=== PATIENT | male | born 1950 | race Caucasian/White ===

== ENCOUNTER 2022-08-20 14:24 | Emergency (ER) | payer MEDICARE, MEDICAID, SELFPAY ==
--- NOTE | 2022-08-20 14:41 | ED_ITS ---
HPI - General Adult General Chief complaint: Urogenital-Male Stated complaint: F/C CATH PULLED OUT PER EMS Time Seen by Provider: 08/20/22 14:25 Source: patient and EMS Mode of arrival: EMS Limitations: physical limitation (Dementia) History of Present Illness HPI narrative: 72-year-old male brought in by EMS after Ontiveros catheter was pulled out. Patient normally lives at the halfway with chronic indwelling Ontiveros catheter at least for the past month and a half for urinary tension the catheter was pulled out patient unable to give history patient is not able to urinate for the past 8 hours despite drinking p.o. fluids patient however do not have abdominal pain or discomfort or distension, bleeding from the penis. Patient is not on anticoagulation. In the ED bladder scan showed 550 mL urine. Related Data Previous Rx's Medication Instructions Recorded cefuroxime axetil 500 mg tablet 500 mg PO Q12H #20 tabs 08/20/22 Allergies Allergy/AdvReac Type Severity Reaction Status Date / Time cats Allergy Unknown Unknown Uncoded 08/20/22 16:10 Review of Systems Review of Systems: All other systems are reviewed and are negative Constitutional: Reports as per HPI and Reports no additional constitutional complaints Eyes: Reports as per HPI and Reports no additional eye complaints Reports system reviewed and no additional complaints, except as documented Cardiovascular: Reports as per HPI and Reports no additional cardiovascular complaints Respiratory: Reports as per HPI and Reports no additional respiratory complaints Gastrointestinal: Reports as per HPI and Reports no additional gastrointestinal complaints Genitourinary: Reports no additional female genitourinary complaints Musculoskeletal: Reports no additional musculoskeletal complaints Skin/Breast: Reports system reviewed and no additional complaints, except as docu Psychiatric: Reports no additional psychiatric complaints Endocrine: Reports no additional endocrine complaints Hematologic/Lymphatic: Reports no additional hematologic/lymphatic complaints Allergic/Immunologic: Reports no additional allergic/immunologic complaints Reports system reviewed and no additional complaints, except as documented and Reports Abnormal speech present [facility] Social History Social History Advance Directives: No Advance Directives Information Provided: Yes Physical Exam ED Vital Signs: Vital Signs - 24 hr 08/20/22 14:43 Pulse Rate 59 Respiratory Rate 16 Pulse Oximetry 97 Oxygen Delivery Method Room Air BMI result Body Mass Index 24.0 Vital signs have been reviewed as appeared to be correct. Blood pressure normal. Heart rate normal. Respiration rate normal. Temperature normal. Oxygen saturation normal. Appearance: Alert. Oriented X3. No acute distress. Head: Normal external exam. Normocephalic. Atraumatic. No Bueno signs noted. No raccoon eyes noted Eyes: PERRLA. EOMI. Conjunctiva and sclera normal. Eyelids normal. ENT: TM's Normal. Pharynx normal. Uvula midline. Moist mucous membranes. No trismus noted. No drooling noted. No muffled voice noted. Neck: Normal inspection. Neck supple. FROM. No adenopathy. Thyroid Normal. No meningeal signs. No neck mass noted. CVS: Normal heart rate and rhythm. Heart sound normal. No murmurs noted. Pulses normal throughout. Respiratory: No respiratory distress. Painless inspiration. Breath sounds normal. No wheezes/rales/rhonchi noted. Chest nontender. No accessory muscle usage noted or decreased air movement noted. Abdomen: Soft and nontender. Bowel sounds normal in all 4 quadrants. No distention noted. No organomegaly noted. No visible injury noted. : Blood on the external urethral meatus no active bleeding. Back: No CVA tenderness. Full range of motion noted. Skin: Skin warm and dry. Normal skin color. Normal skin turgor. No rashes/lesions/lacerations noted. Extremities: No lower extremity edema. Extremities exhibit normal range of motion. Extremities nontender. Neuro: Oriented X 3. Cranial nerve exam: II-XII are grossly intact No motor deficit. No sensory deficit. Reflexes normal. Course Course Course Narrative: Status post urinary retention patient had Ontiveros catheter placed in the emergency department will discharge home with Ontiveros and leg bag teaching, bloody urine but no active bleeding need no irrigation at this point, UA is showing UTI will start patient on cefuroxime. Medical Decision Making Differential Diagnosis Differential Diagnoses: The differential diagnosis associated with the presentation includes Urine retention, UTI, urethral bleeding. Lab Data MDM Lab Attestation statement: I reviewed the patient's lab results. Labs: Lab Results 08/20/22 Range/Units 15:21 Urine Color Dark Yellow Urine Appearance Turbid Urine pH 6.5 (5.0-9.0) Ur Specific [place] 1.015 (1.005-1.025) Urine Protein 300 (3+) H (Neg-Trace) mg/dL Urine Glucose (UA) Negative (Negative) mg/dL Urine Ketones Negative (Negative) mg/dL Urine Blood Large (3+) H (Negative) Urine Nitrite Negative (Negative) Ur Leukocyte Esterase Large (3+) H (Negative) Urine RBC >20 H (0-2) /HPF Urine WBC >50 H (0-5) /HPF Ur Squamous Epith Cells 0-2 (0-2) /HPF Urine Bacteria None Seen (None Seen) Hyaline Casts 0-2 (0-2) /LPF Discharge Plan Discharge Clinical Impression: Urinary tract infection, Dislodged Ontiveros catheter Patient Disposition: Xfer Other Transfer Details: [facility] Instructions: Urinary Tract Infection in Men (ED), Ontiveros Catheter Placement and Care (ED) Prescriptions: New cefuroxime axetil 500 mg tablet 500 mg PO Q12H Qty: 20 0RF Referrals: Gonzalo Ortiz MD [Physician] -
[2022-08-20 14:43] VITALS: BP 140/70; PULSE 59; PULSE 72; RESP 16; O2SAT 97; BMI 24.0
--- NOTE | 2022-08-20 14:47 | PC.NURSE ---
pt alert disoriented at baseline. per EMS he pulled his villa out this am. will put in a replacement
--- NOTE | 2022-08-20 15:15 | PC.NURSE ---
put a new villa in. pt tolerated it the procedure well. tech will collect urine sample
[2022-08-20 15:31] LABS: Appearance Urine Turbid; Color Urine Dark Yellow; Glucose Urine UA Negative (Negative); Leukocyte Esterase Urine Large (3+) (Negative); Nitrite Urine Negative (Negative); PH 6.5 (5.0-9.0); Specific Gravity - Urine 1.015 (1.005-1.025); UMIC TRIGGER UACC YES; Urine Blood Large (3+) (Negative); Urine Ketones Negative (Negative); Urine Protein 300 (3+) mg/dL (Neg-Trace)
[2022-08-20 15:39] LABS: Bacteria Urine None Seen (None Seen); Hyaline Casts Urine 0-2 /LPF (0-2); RBC Urine >20 /HPF (0-2); Squamous Epithelial Cell Urine 0-2 /HPF (0-2); UACC Culture Trigger YES; WBC Urine >50 /HPF (0-5)
[2022-08-20 16:00] VITALS: BP 125/62; PULSE 54; RESP 13; TEMP 36.9; O2SAT 99
[2022-08-20 16:33] VITALS: BP 119/67; PULSE 52; RESP 16; O2SAT 100
--- NOTE | 2022-08-20 16:34 | PC.NURSE ---
pt. alert. disoriented. waiting on ambulance to be transported to [facility].
== END 2022-08-20 18:15 | disposition other institution (70) ==
PROVIDERS: Emergency Provider Emergency Medicine
DX: N39.0 Urinary tract infection, site not specified (principal); Z79.899 Other long term (current) drug therapy
CPT/HCPCS: 81001; 87086; 99283; 99284

== ENCOUNTER 2022-10-24 18:43 | Inpatient (IN) | payer MEDICARE, MEDICAID, SELFPAY ==
--- NOTE | ~2022-10-24 | CT_ITS ---
EXAMINATION: CT ABDOMEN AND PELVIS WITHOUT CONTRAST CLINICAL INFORMATION: Abdominal distention COMPARISON: None TECHNIQUE: Multidetector volumetric imaging was performed from the superior aspect of the liver through the pubic symphysis. Sagittal and coronal reformatted images were obtained on the technologist's workstation. This CT examination was performed using dose optimization techniques as appropriate, variously including the following: *Automated exposure control *Adjustment of mA and/or kV according to patient size (this includes techniques or standardized protocols for targeted exams where dose is matched to indication/reason for exam; i.e. extremities or head) *Use of iterative reconstruction technique DLP: 491 mGy-cm FINDINGS: LUNG BASES: Bibasilar atelectasis. Prominent heart with coronary artery calcifications. LIVER, GALLBLADDER, AND BILIARY TREE: The liver is normal in size, shape, and attenuation. No focal hepatic lesion or biliary ductal dilatation is present. The gallbladder is unremarkable with no evidence of radiopaque gallstones, gallbladder wall thickening, or obvious pericholecystic inflammatory changes. PANCREAS: Unremarkable. SPLEEN: Unremarkable. ADRENAL GLANDS: Unremarkable. KIDNEYS AND URETERS: The kidneys are normal in size, shape, and attenuation. There is bilateral mild to moderate hydroureteronephrosis. There is bilateral perinephric stranding, left greater than right. Significant fluid tracks inferiorly. No obstructing calculi. Simple cyst at the midpole of the right kidney for which no specific follow-up is recommended. BLADDER: Significant distention of the bladder. There is a Ontiveros catheter with the balloon inflated in the prostate. No bladder wall thickening. Small amount of gas in the bladder lumen. GASTROINTESTINAL TRACT: The stomach is unremarkable. Normal caliber of the small bowel. There is no bowel obstruction. No colonic wall thickening or inflammation. Colonic diverticulosis without diverticulitis. Normal appendix. Small volume of free fluid. There is no convincing evidence of free air. ABDOMINAL WALL: No significant hernia is appreciated. Ventral abdominal hernia repair. LYMPH NODES: Normal. VASCULAR: Normal caliber aorta with moderate atherosclerotic calcification. PELVIC VISCERA: Enlarged prostate measuring 5.1 cm transverse. This does encroach upon the base of the bladder. OSSEOUS STRUCTURES: No acute or suspicious osseous abnormality. Mild degenerative change throughout the spine and of both hips. CT/CT abdomen pelvis wo IV con IMPRESSION: 1. Significant distention of the bladder. There is a Ontiveros catheter with the balloon inflated in the prostate. There is associated bilateral mild to moderate hydroureteronephrosis. There is perinephric stranding, left greater than right. Cannot exclude associated infectious process. 2. Small volume of free fluid in the abdomen. No convincing evidence of free air. Fleischner guidelines were followed.
--- NOTE | 2022-10-24 19:01 | ED_ITS ---
HPI - General Adult General Chief complaint: GI Bleed Stated complaint: BLACK TARRY STOOLS FROM [facility] PER EMS Time Seen by Provider: 10/24/22 18:47 Source: EMS Mode of arrival: EMS Limitations: altered mental status History of Present Illness HPI narrative: senior care felt that he passed dark stool, in addition they felt that he was more lethargic than normal Onset (ago): day(s) Related Data Previous Rx's Medication Instructions Recorded cefuroxime axetil 500 mg tablet 500 mg PO Q12H #20 tabs 08/20/22 Allergies Allergy/AdvReac Type Severity Reaction Status Date / Time cats Allergy Unknown Unknown Uncoded 08/20/22 16:10 Review of Systems 2 Review of Systems: Yes Unobtainable due to mental status PMFSH Social History Social History Advance Directives: Yes Advance Directives on File: Yes Advance Directives Date on File: 08/21/22 Physical Exam ED Vital Signs: Vital Signs - 24 hr 10/24/22 19:02 10/24/22 19:35 10/24/22 21:25 Temperature 99.3 F 98.3 F Pulse Rate 138 H 127 H Respiratory Rate 20 28 H Blood Pressure 128/75 124/75 118/75 Pulse Oximetry 95 95 96 Oxygen Delivery Method Room Air Room Air Room Air 10/24/22 21:29 10/24/22 22:35 Temperature Pulse Rate 111 H 112 H Respiratory Rate Blood Pressure 107/69 Pulse Oximetry 96 Oxygen Delivery Method Room Air BMI result Body Mass Index 26.5 Const Other: very frail elderly male Orientation/consciousness: oriented to person Limitations: altered mental status HENMT Head: Yes normal to inspection Ears: external ears normal General nose exam: Normal external nose present Mouth: Normal oral and palatal mucosa present and oropharynx normal Throat: Yes posterior oropharynx normal Eyes General: appearance normal, both eyes and all related structures Neck Neck: Yes normal visual inspection Chest Chest palpation & inspection: normal inspection of the chest Resp Auscultation: clear to auscultation bilaterally Cardio Other: irregular rate, tachycardia Jugular venous distension: no JVD Rhythm: abnormal rhythm Heart sounds: S2 normal heart sound present GI Inspection: Yes normal to inspection Palpation (GI): Soft to palpation, nontender and No hepatosplenomegaly present Auscultation: normal bowel sounds Other: rectal brown stool heme negative Skin General skin exam: no rashes or lesions noted Neuro Other: all extremities frail and atrophied General: oriented to person Cranial nerves: Yes CN's II-XII intact bilaterally Extrem General: Yes normal to inspection Psych Appearance: grossly normal Course Reevaluation(s) Reevaluation #1: need to get old labs as he has so much abnormalities Time: 21:14 Reevaluation #2: the renal failure is new, heart rate down to 100, no evidence of GI bleed, his troponin has bumped. Time: 23:37 Reevaluation #3: I spent 40 minutes of critical care, with interventions, assessments, speaking to patient, consultants, and family. Time: 23:37 Medications Administered Discontinued Medications Generic Name Dose Route Start Last Admin Trade Name Freq PRN Reason Stop Dose Admin Sodium Chloride 500 mls @ 500 mls/hr 10/24/22 22:00 10/24/22 23:44 Ns IV 10/24/22 22:59 Infused .Q1H PERNELL Infusion Metoprolol Tartrate 5 mg 10/24/22 21:14 10/24/22 21:18 Metoprolol Tartrate 5 Mg/5 Ml Vial IVPUSH 10/24/22 21:15 5 mg ONCE ONE Administration Metoprolol Tartrate 5 mg 10/24/22 21:50 10/24/22 23:00 Metoprolol Tartrate 5 Mg/5 Ml Vial IVPUSH 10/24/22 21:51 5 mg ONCE ONE Administration Pantoprazole Sodium 40 mg 10/24/22 19:02 10/24/22 21:18 Pantoprazole Sodium 40 Mg/10 Ml Vial IVPUSH 10/24/22 19:03 40 mg ONCE ONE Administration Medical Decision Making Differential Diagnosis Differential Diagnoses: The differential diagnosis associated with the presentation includes (gi bleed, gastritis, dehydration, renal failure atrial fibrillation, nonstemi) Admission/Observation Consideration of admission/observation: Escalation of care including admission/observation considered (In this very frail male who is tachycardia and appears dry admission was considered) Consult Healthcare Provider Management of the patient was discussed with: Hospitalist Lab Data MDM Lab Attestation statement: I reviewed the patient's lab results. (His renal failure and low barcarbinate is new) 10/24/22 19:29 10/24/22 19:29 Labs: Lab Results 10/24/22 10/24/22 10/24/22 Range/Units 19:29 19:29 19:29 WBC 8.4 (4.8-10.8) X10*3/uL RBC 4.14 L (4.60-5.80) X10*6/uL Hgb 13.1 L (14.0-18.0) g/dl Hct 39.1 L (42.0-52.0) % MCV 94.4 (80.0-98.0) fL MCH 31.6 (27.0-33.0) pg MCHC 33.5 (31.0-36.0) g/dl RDW 14.6 (11.0-16.0) % Plt Count 196 (160-400) X10*3/uL MPV 8.8 L (9.4-12.4) fL Immature Gran % (Auto) 0.6 H (0.0-0.4) % Neut % (Auto) 95.5 H (45-73) % Lymph % (Auto) 2.8 L (20-40) % [place] % (Auto) 0.7 L (2-11) % Eos % (Auto) 0.0 (0-4) % Baso % (Auto) 0.4 (0-2) % Lymph # (Auto) 0.2 L (1.2-4.9) X10*3/uL [place] # (Auto) 0.1 (0.1-1.2) X10*3/uL Eos # (Auto) 0.0 (0.0-0.4) X10*3/uL Baso # (Auto) 0.0 (0.0-0.2) X10*3/uL Abs Immat Gran (auto) 0.05 H (0.00-0.03) X10*3/uL Absolute Neuts (auto) 8.1 (2.0-8.3) x10*3/uL Absolute Nucleated RBC 0.000 (0.0-0.012) X10*3/uL Nucleated RBC % (auto) 0.0 (0.0-0.2) /100WBC Smear Tech's Comments VERIFIED Sodium 141 (135-145) mmol/L Potassium 3.4 (3.3-5.1) mmol/L Chloride 111 H (96-108) mmol/L Carbon Dioxide 13 L (22-29) mmol/L Anion Gap 20 (12-20) BUN 34 H (9-16) mg/dL Creatinine 1.67 H (0.5-1.4) mg/dL Estim Creat Clear Calc 40.0 Estimated GFR 40 Random Glucose 95 (60-115) mg/dL Calcium 8.6 (8.4-10.2) mg/dL Total Bilirubin 1.5 H (0.0-1.0) mg/dL AST 14 (5-37) U/L ALT 11 (0-40) U/L Alkaline Phosphatase 107 (39-117) U/L Troponin I High Sens 86.7 H (<3.5-35.0) ng/L Total Protein 5.7 L (6.5-8.0) g/dL Albumin 3.5 (3.5-5.0) g/dL 10/24/22 Range/Units 22:56 WBC (4.8-10.8) X10*3/uL RBC (4.60-5.80) X10*6/uL Hgb (14.0-18.0) g/dl Hct (42.0-52.0) % MCV (80.0-98.0) fL MCH (27.0-33.0) pg MCHC (31.0-36.0) g/dl RDW (11.0-16.0) % Plt Count (160-400) X10*3/uL MPV (9.4-12.4) fL Immature Gran % (Auto) (0.0-0.4) % Neut % (Auto) (45-73) % Lymph % (Auto) (20-40) % [place] % (Auto) (2-11) % Eos % (Auto) (0-4) % Baso % (Auto) (0-2) % Lymph # (Auto) (1.2-4.9) X10*3/uL [place] # (Auto) (0.1-1.2) X10*3/uL Eos # (Auto) (0.0-0.4) X10*3/uL Baso # (Auto) (0.0-0.2) X10*3/uL Abs Immat Gran (auto) (0.00-0.03) X10*3/uL Absolute Neuts (auto) (2.0-8.3) x10*3/uL Absolute Nucleated RBC (0.0-0.012) X10*3/uL Nucleated RBC % (auto) (0.0-0.2) /100WBC Smear Tech's Comments Sodium (135-145) mmol/L Potassium (3.3-5.1) mmol/L Chloride (96-108) mmol/L Carbon Dioxide (22-29) mmol/L Anion Gap (12-20) BUN (9-16) mg/dL Creatinine (0.5-1.4) mg/dL Estim Creat Clear Calc Estimated GFR Random Glucose (60-115) mg/dL Calcium (8.4-10.2) mg/dL Total Bilirubin (0.0-1.0) mg/dL AST (5-37) U/L ALT (0-40) U/L Alkaline Phosphatase (39-117) U/L Troponin I High Sens 101.2 H* (<3.5-35.0) ng/L Total Protein (6.5-8.0) g/dL Albumin (3.5-5.0) g/dL Independent Interpretation I performed an independent interpretation of an: EKG (afib 130, RBBB, no acute st or twave changes) External Record Review External record reviewed: Outpatient record (from the [place] shows his renal failure is new) Discharge Plan Discharge Clinical Impression: Acute renal failure, Atrial fibrillation, rapid, Elevated troponin Patient Disposition: Admitted As Inpatient
[2022-10-24 19:02] VITALS: BP 108/78; BP 128/75; PULSE 138; PULSE 160; RESP 20; TEMP 37.4; O2SAT 95; BMI 26.5
--- NOTE | 2022-10-24 19:03 | ECG_ITS ---
Test Reason : GI BLEED Blood Pressure : / mmHG Vent. Rate : 129 BPM Atrial Rate : 000 BPM P-R Int : 000 ms QRS Dur : 122 ms QT Int : 392 ms P-R-T Axes : 000 -09 -05 degrees QTc Int : 574 ms Atrial fibrillation with rapid ventricular response Right bundle branch block Inferior infarct , age undetermined Abnormal ECG No previous ECGs available Referred By: Marlon Gonzalez Electronically Signed By:Chris Bustos
--- NOTE | 2022-10-24 19:29 | PC.NURSE ---
assumed care of pt
[2022-10-24 19:35] VITALS: BP 124/75; PULSE 127; RESP 28; TEMP 36.8; O2SAT 95
[2022-10-24 19:42] LABS: Basophils Percent Auto 0.4 % (0-2); Hematocrit 39.1 % (42.0-52.0); Hemoglobin 13.1 g/dl (14.0-18.0); Imm Gran Abs Auto 0.05 X10*3/uL (0.00-0.03); Imm Gran Pct Auto 0.6 % (0.0-0.4); Lymphocytes Absolute Auto 0.2 X10*3/uL (1.2-4.9); Lymphocytes Percent Auto 2.8 % (20-40); MANUAL DIFF FLAG SCAN; Mean Corpuscular HGB Conc 33.5 g/dl (31.0-36.0); Mean Corpuscular Hemoglobin 31.6 pg (27.0-33.0); Mean Corpuscular Volume 94.4 fL (80.0-98.0); Mean Platelet Volume 8.8 fL (9.4-12.4); Monocytes Absolute Auto 0.1 X10*3/uL (0.1-1.2); Monocytes Percent Auto 0.7 % (2-11); Neutrophils Absolute Auto 8.1 x10*3/uL (2.0-8.3); Neutrophils Percent Auto 95.5 % (45-73); Platelet Count 196 X10*3/uL (160-400); Red Blood Count 4.14 X10*6/uL (4.60-5.80); Red Cell Distribution Width 14.6 % (11.0-16.0); SCAN SMEAR FLAG 1; White Blood Count 8.4 X10*3/uL (4.8-10.8)
[2022-10-24 19:55] LABS: Troponin-I High Sensitivity 86.7 ng/L (<3.5-35.0)
[2022-10-24 19:57] LABS: Alanine Aminotransferase 11 U/L (0-40); Albumin Level 3.5 g/dL (3.5-5.0); Alkaline Phosphatase 107 U/L (39-117); Anion Gap 20 (12-20); Aspartate Amino Transferase 14 U/L (5-37); Bilirubin Total 1.5 mg/dL (0.0-1.0); Blood Urea Nitrogen 34 mg/dL (9-16); Calcium 8.6 mg/dL (8.4-10.2); Carbon Dioxide 13 mmol/L (22-29); Chloride 111 mmol/L (96-108); Estimated Glomerular Filt Rate 40; Glucose Random 95 mg/dL (60-115); Potassium 3.4 mmol/L (3.3-5.1); Sodium 141 mmol/L (135-145); Total Protein 5.7 g/dL (6.5-8.0)
[2022-10-24 20:07] LABS: SLIDE REVIEW VERIFIED
[2022-10-24] MEDS: Metoprolol Tartrate 5 MG/5 ML VIAL IVPUSH ×2 (21:18→23:00)
[2022-10-24] MEDS: Pantoprazole Sodium 40 MG/10 ML VIAL IVPUSH (21:18)
--- NOTE | 2022-10-24 21:24 | PC.NURSE ---
bp 118/75 small/light blue cuff used
[2022-10-24 21:25] VITALS: BP 118/75; O2SAT 96
[2022-10-24 21:29] VITALS: PULSE 111
[2022-10-24] MEDS: 0.9 % Sodium Chloride 500 ML IV (22:33)
[2022-10-24 22:35] VITALS: BP 107/69; PULSE 112; O2SAT 96
[2022-10-24 23:30] LABS: Troponin-I High Sensitivity 101.2 ng/L (<3.5-35.0)
--- NOTE | 2022-10-24 23:32 | ECG_ITS ---
Test Reason : REPECT Blood Pressure : / mmHG Vent. Rate : 102 BPM Atrial Rate : 102 BPM P-R Int : 214 ms QRS Dur : 134 ms QT Int : 362 ms P-R-T Axes : 057 -16 -04 degrees QTc Int : 471 ms Sinus tachycardia with 1st degree A-V block Right bundle branch block Abnormal ECG When compared with ECG of 24-OCT-2022 19:20, Sinus rhythm has replaced Atrial fibrillation ST no longer depressed in Anterior leads T wave inversion no longer evident in Anterior leads Referred By: Marlon Gonzalez Electronically Signed By:Chris Bustos
--- NOTE | 2022-10-24 23:39 | P.HPHOSP_ITS ---
History of Present Illness Date of Service: 10/24/22 Chief Complaint: GI bleed This is a 72-year-old male with pertinent history of paroxysmal atrial fibrillation not on anticoagulation, BPH, essential hypertension, insomnia, dementia, urinary incontinence who was sent from [facility] for evaluation of dark stools. Patient is a poor historian and does not know why he is here. He is only oriented to self. History obtained from chart review and ER provider. As per the custodial staff, patient was lethargic than usual. In the emergency department, patient was found to be in a fib with RVR. Creatinine and troponin found to be elevated. Unable to obtain review of systems Review of Systems Review of Systems: Yes Unobtainable due to mental condition [facility] Medical History (Updated 10/24/22 @ 23:57 by Sheeba Romero MD) BPH (benign prostatic hyperplasia) Dementia Essential hypertension Insomnia Paroxysmal atrial fibrillation Urinary incontinence Pertinent family history: Not significant Social History Advance Directives: Yes Advance Directives on File: Yes Advance Directives Date on File: 08/21/22 Meds Allergies Allergy/AdvReac Type Severity Reaction Status Date / Time cats Allergy Unknown Unknown Uncoded 08/20/22 16:10 Active Medications: Current Medications Sodium Chloride (Ns) 1,000 mls @ 999 mls/hr IV .Q1H1M ONE Stop: 10/25/22 00:36 Pharmacy Consult (Consult Rx Perform Med Rec) 1 each MISCELLANE ONCE PRN PRN Reason: Consult order Physical Exam Vital Signs and Narrative: Vital Signs: Last Vital Signs Temp 98.3 F 10/24/22 19:35 Pulse 112 H 10/24/22 22:35 Resp 28 H 10/24/22 19:35 BP 107/69 10/24/22 22:35 Pulse Ox 96 10/24/22 22:35 O2 Del Method 10/24/22 22:35 BMI result Body Mass Index 26.5 Elderly male lying in bed in no distress Neck supple, no JVD Tachycardic with regular rhythm, S1-S2 heard Regular breath sounds bilaterally, no wheezing or crackles appreciated Abdomen soft nontender, no guarding, no rigidity Patient is awake, alert and oriented to self, disoriented to place, time and person ; no focal motor deficit Psych: Normal mood No pedal edema Results Labs 10/24/22 19:29 10/24/22 19:29 Labs: Laboratory Results - last 24 hr 10/24/22 10/24/22 10/24/22 19:29 19:29 19:29 MCV 94.4 MCH 31.6 MCHC 33.5 RDW 14.6 Plt Count 196 MPV 8.8 L Immature Gran % (Auto) 0.6 H Neut % (Auto) 95.5 H Lymph % (Auto) 2.8 L [place] % (Auto) 0.7 L Eos % (Auto) 0.0 Baso % (Auto) 0.4 Lymph # (Auto) 0.2 L [place] # (Auto) 0.1 Eos # (Auto) 0.0 Baso # (Auto) 0.0 Abs Immat Gran (auto) 0.05 H Absolute Neuts (auto) 8.1 Absolute Nucleated RBC 0.000 Nucleated RBC % (auto) 0.0 Smear Tech's Comments VERIFIED Anion Gap 20 Estim Creat Clear Calc 40.0 Estimated GFR 40 Random Glucose 95 Calcium 8.6 Total Bilirubin 1.5 H AST 14 ALT 11 Alkaline Phosphatase 107 Troponin I High Sens 86.7 H Total Protein 5.7 L Albumin 3.5 10/24/22 22:56 MCV MCH MCHC RDW Plt Count MPV Immature Gran % (Auto) Neut % (Auto) Lymph % (Auto) [place] % (Auto) Eos % (Auto) Baso % (Auto) Lymph # (Auto) [place] # (Auto) Eos # (Auto) Baso # (Auto) Abs Immat Gran (auto) Absolute Neuts (auto) Absolute Nucleated RBC Nucleated RBC % (auto) Smear Tech's Comments Anion Gap Estim Creat Clear Calc Estimated GFR Random Glucose Calcium Total Bilirubin AST ALT Alkaline Phosphatase Troponin I High Sens 101.2 H* Total Protein Albumin Assessment and Plan (1) GI bleed: Status: Acute (2) Atrial fibrillation, rapid: Status: Acute (3) Acute renal failure: Status: Acute Plan This is a 72-year-old male with pertinent history of paroxysmal atrial fibrillation not on anticoagulation, BPH, essential hypertension, insomnia, dementia, urinary incontinence who was sent from [facility] for evaluation of dark stools. #. Acute GI bleed: Resuscitated with IV crystalloids. Administered IV Protonix. Consulting GI, appreciate assistance. Closely monitor hemodynamics and H&H #. AFib with RVR, in the setting of above: Rhythm broke in the ER with IV metoprolol pushes. Will admit with cardiac cath technician #. Acute kidney injury stage I, prerenal: Resuscitated with IV crystalloids. Monitor creatinine and urine output with fluid resuscitation. Avoid nephrotoxins #. Elevated troponin, likely type 2 in the setting of increased demand. Repeat #. Essential hypertension: Hold antihypertensives in the setting of GI bleed #. Mood disorder: Continue home mood stabilizers #. BPH: On finasteride and Flomax #. Dementia, unspecified: Maintain sleep-wake cycle Med rec pending DVT prophylaxis: Mechanical Full code. Unable to contact custodial at this time. Readdress code status in a.m. NPO Admit as inpatient and will require two night minimum hospital stay for close monitoring of hemodynamics. Specialist consult pending Time Spent With Patient Time: Total time managing care of this patient today ____ minutes. Quality Stroke Does the patient have a stroke diagnosis?: No VTE Prior VTE?: No VTE Risk Level:: Medical - moderate - high VTE Device Contraindication: N/A - Device Ordered VTE Drug Contraindication: Treatment Not Indicated
[2022-10-25] VITALS (8 sets, daily range): BP systolic 113–139; BP diastolic 63–92; PULSE 81–122; RESP 19–25; TEMP 36.4–37.9; O2SAT 94–98
--- NOTE | 2022-10-25 | ECG_ITS ---
Test Reason : CHEST PAIN Blood Pressure : / mmHG Vent. Rate : 092 BPM Atrial Rate : 092 BPM P-R Int : 192 ms QRS Dur : 140 ms QT Int : 428 ms P-R-T Axes : 066 -16 -16 degrees QTc Int : 529 ms Normal sinus rhythm Right bundle branch block Abnormal ECG When compared with ECG of 25-OCT-2022 04:35, Rhythm change ST no longer depressed in Anterior leads Inverted T waves have replaced nonspecific T wave abnormality in Inferior leads T wave inversion less evident in Anterior leads Referred By: Madina Chang Electronically Signed By:ELDA ARRIAZA
[2022-10-25] MEDS: Pantoprazole Sodium 40 MG/10 ML VIAL IVPUSH (00:16)
--- NOTE | 2022-10-25 00:28 | PC.NURSE ---
Addendum entered by Margoth Pressley 10/25/22 00:32: Donna, PCT assisted Original Note: pt not oriented, checked pt to make sure linens and pt remin dry and clean, upon repositioning pt and removing pt's pants discovered villa cath, villa cath drained- 500 mL
[2022-10-25] MEDS: 0.9 % Sodium Chloride 1,000 ML 999 ML IV (00:33)
[2022-10-25] MEDS: 0.9 % Sodium Chloride Flush 3 ML SYRINGE IVFLUSH ×2 (00:34→07:37)
--- NOTE | 2022-10-25 03:55 | PC.NURSE ---
med rec complete
[2022-10-25] MEDS: Metoprolol Tartrate 5 MG/5 ML VIAL IVPUSH (04:40)
--- NOTE | 2022-10-25 05:33 | PC.NURSE ---
Addendum entered by Margoth Pressley 10/25/22 06:18: urine turbid, foul odor, sediment visible, brain colored Addendum entered by Margoth Pressley 10/25/22 05:41: abd no longer distended, non-tender Addendum entered by Margoth Pressley 10/25/22 05:35: this nurse drained villa 2400 mL Original Note: pt came in with villa from facility where he resides CT scan found catheter in prostate This nurse instructed to remove villa, Dr Romero and Donna, PCT present at this time Dr Pompa replaced villa patent labs done, including urine sample collected will CTM pt states feeling relief
--- NOTE | 2022-10-25 05:36 | PC.NURSE ---
critical result from lab lactic 3.7; Dr Romero notified
[2022-10-25 05:40] LABS: Hematocrit 41.1 % (42.0-52.0); Hemoglobin 13.6 g/dl (14.0-18.0); Mean Corpuscular HGB Conc 33.1 g/dl (31.0-36.0); Mean Corpuscular Hemoglobin 31.1 pg (27.0-33.0); Mean Corpuscular Volume 93.8 fL (80.0-98.0); Mean Platelet Volume 9.1 fL (9.4-12.4); Platelet Count 182 X10*3/uL (160-400); Red Blood Count 4.38 X10*6/uL (4.60-5.80)
[2022-10-25 05:41] LABS: WBC ABN SCTR FOR CBC 1; White Blood Count 25.8 X10*3/uL (4.8-10.8)
[2022-10-25] MEDS: cefTRIAXone sodium 1 GM in 0.9 % Sodium Chloride 50 ML IV (05:43)
[2022-10-25 05:47] LABS: Appearance Urine Turbid; Color Urine Yellow; Glucose Urine UA Negative (Negative); Leukocyte Esterase Urine Large (3+) (Negative); Nitrite Urine Negative (Negative); PH 6.5 (5.0-9.0); Specific Gravity - Urine 1.015 (1.005-1.025); UMIC TRIGGER UACC YES; Urine Blood Large (3+) (Negative); Urine Ketones Negative (Negative); Urine Protein 100 (2+) mg/dL (Neg-Trace)
[2022-10-25 05:55] LABS: Bacteria Urine 4+ (None Seen); Hyaline Casts Urine >20 /LPF (0-2); RBC Urine >20 /HPF (0-2); UACC Culture Trigger YES; WBC Urine >50 /HPF (0-5)
[2022-10-25 06:02] LABS: Acanthocytes 1+ (0-2) /OIF; Band Neutrophils Percent 15 % (3-5); Lymphocytes Absolute Manual 1.5 X10*3/uL (1.2-4.9); Lymphocytes Percent Manual 6 % (20-40); Metamyelocytes Absolute 0.3 X10*3/uL; Metamyelocytes Percent 1 %; Monocytes Absolute Manual 0.3 X10*3/uL (0.1-1.2); Monocytes Percent Manual 1 % (2-11); Neutrophils Absolute Manual 23.7 X10*3/uL (2.0-8.3); Neutrophils Percent Manual 77 % (45-73); Platelet Estimate NORMAL (NORMAL); Platelet Morphology Comment NORMAL; RBC Morphology NOTED
[2022-10-25 06:03] LABS: Burr Cells 1+ (0-2) /OIF; Dohle Bodies PRESENT; Toxic Vacuolation PRESENT
[2022-10-25 06:05] LABS: Anion Gap 19 (12-20); Blood Urea Nitrogen 43 mg/dL (9-16); Calcium 8.7 mg/dL (8.4-10.2); Carbon Dioxide 15 mmol/L (22-29); Chloride 112 mmol/L (96-108); Creatinine Clr Calc Pharmacy 38.6; Estimated Glomerular Filt Rate 39; Glucose Random 90 mg/dL (60-115); Potassium 4.4 mmol/L (3.3-5.1); Sodium 142 mmol/L (135-145)
[2022-10-25 06:06] LABS: Lactic Acid 3.7 mmol/L (0.5-2.0)
[2022-10-25 06:10] LABS: Troponin-I High Sensitivity 89.5 ng/L (<3.5-35.0)
[2022-10-25] MEDS: 0.9 % Sodium Chloride 500 ML IV (06:10)
--- NOTE | 2022-10-25 06:47 | PM.GICN ---
History of Present Illness Data of Consult Service Date: 10/25/22 Requesting physician: Sheeba Romero Primary Care Provider: Jose Miles MD [facility] Reason for consult: GI bleeding 72 ym with history of paroxysmal atrial fibrillation not on anticoagulation, BPH, essential hypertension, insomnia, dementia, urinary incontinence [place] [facility] [place] [facility] for evaluation of dark stools and lethargy? Patient is a poor historian and does not know why he is here.? He is only oriented to self.? History obtained from chart review, hospitalist's notes and ER provider.? As per the custodial staff, patient was lethargic than usual.? In the ED, patient was found to be in a fib with RVR.? Creatinine and troponin found to be elevated. 10/24/[address] SCAN SHOWED: 1.? Significant distention of the bladder. There is a Ontiveros catheter with the balloon inflated in the prostate. There is associated bilateral mild to moderate hydroureteronephrosis. There is perinephric stranding, left greater than right. Cannot exclude associated infectious process. 2.? Small volume of free fluid in the abdomen. No convincing evidence of free air. Review of Systems Review of Systems: Yes Unobtainable due to mental status PMFSH Past Medical History Medical History (Updated 06/01/24 @ 14:57 by Ashley Navarrete MD) Adult failure to thrive Gastrointestinal hemorrhage, unspecified History of falling Unspecified hydronephrosis Bacteremia Insomnia Dementia Urinary incontinence BPH (benign prostatic hyperplasia) Essential hypertension Paroxysmal atrial fibrillation Atrial fibrillation, rapid Social History Social History Household Members: Other Housing: [facility] Unable to assess alcohol history related to: Unknown Alcohol intake: never Patient Tobacco Use Status: Tobacco use Unknown Smoked in Last 30 Days: No Use of substances other than those prescribed or required for medical reasons: No Advance Directives: Yes Advance Directives on File: Yes Advance Directives Date on File: 08/21/22 service: No Current occupational status: retired Meds Allergies Allergy/AdvReac Type Severity Reaction Status Date / Time cats Allergy Unknown Unknown Uncoded 08/20/22 16:10 Active Medications: Current Medications Acetaminophen (Acetaminophen 325 Mg Tablet) 650 mg PO Q6H PRN PRN Reason: Pain, Mild (Pain Scale 1-3) Acetaminophen (Acetaminophen Supp 650 Mg Supp.Rect) 650 mg ID Q6H PRN PRN Reason: Pain, Mild (Pain Scale 1-3) Ceftriaxone Sodium 1 gm/ (Sodium Chloride) 50 mls @ 100 mls/hr IV Q24H [facility] Last Infusion: 10/25/22 06:15 Dose: Infused Sodium Chloride (Ns) 500 mls @ 500 mls/hr IV .Q1H ONE Stop: 10/25/22 07:06 Last Admin: 10/25/22 06:10 Dose: 500 mls/hr Melatonin (Melatonin 3 Mg Tablet) 6 mg PO BEDTIME PRN PRN Reason: Insomnia Ondansetron HCl (Ondansetron Hcl 4 Mg/2 Ml Vial) 4 mg IVPUSH Q8H PRN PRN Reason: Nausea and Vomiting Pharmacy Consult (Consult Rx Perform Med Rec) 1 each MISCELLANE ONCE PRN PRN Reason: Consult order Sodium Chloride (0.9 % Sodium Chloride Flush 3 Ml Syringe) 3 ml IVFLUSH QSHIFT [facility] Last Admin: 10/25/22 00:34 Dose: 3 ml Home Medications ?Medication ?Instructions ?Recorded ?Confirmed ?Last Taken ?Type amlodipine 10 mg tablet 1 tab PO DAILY 10/25/22 10/25/22 Unknown History atorvastatin 20 mg tablet 1 tab PO DAILY 10/25/22 10/25/22 Unknown History buspirone 5 mg tablet 1 tab PO DAILY 10/25/22 10/25/22 Unknown History erythromycin ethylsuccinate 200 200 mg PO DAILY 10/25/22 10/25/22 Unknown History mg/5 mL oral powder for suspension finasteride 5 mg tablet 1 tab PO DAILY 10/25/22 10/25/22 Unknown History lisinopril 5 mg tablet 1 tab PO DAILY 10/25/22 10/25/22 Unknown History metoprolol tartrate 25 mg tablet 1 tab PO DAILY 10/25/22 10/25/22 Unknown History tamsulosin 0.4 mg capsule 1 cap PO DAILY 10/25/22 10/25/22 Unknown History Physical Exam Vital Signs: Vital Signs: Last Vital Signs Temp 100.3 F 10/25/22 06:14 Pulse 93 10/25/22 04:45 Resp 24 H 10/25/22 04:44 BP 139/92 H 10/25/22 04:45 Pulse Ox 94 10/25/22 04:45 O2 Del Method 10/25/22 04:45 BMI result Body Mass Index 26.5 GEN: Well developed, no acute distress, alert, HEENT: Normocephalic, atraumatic, normal external ears, nose appears normal, no oropharyngeal edema or exudates Eyes: Normal to appearance Neck: Supple, no lymphadenopathy Respiratory: Talks in complete sentences, no respiratory distress, clear to auscultation bilaterally Cardiovascular: Regular rate and rhythm, no murmurs rubs or gallops Abdomen: Soft, nontender, nondistended, no guarding, no rebound Back: No CVA tenderness Extremities: No clubbing cyanosis or edema Neurologic: No focal neurologic deficits, cranial nerves 2-12 intact, strength is 5/5 bilaterally Skin: No rash Results Labs 10/28/22 06:28 10/28/22 06:28 Labs: Short CBC 10/24/22 10/25/22 Range/Units 19:29 05:33 WBC 8.4 25.8 H (4.8-10.8) X10*3/uL Hgb 13.1 L 13.6 L (14.0-18.0) g/dl Hct 39.1 L 41.1 L (42.0-52.0) % Plt Count 196 182 (160-400) X10*3/uL BMP 10/24/22 10/25/22 19:29 05:33 Sodium 141 142 Potassium 3.4 4.4 D Chloride 111 H 112 H Carbon Dioxide 13 L 15 L BUN 34 H 43 H Creatinine 1.67 H 1.73 H Calcium 8.6 8.7 Liver Function 10/24/22 Range/Units 19:29 Total Bilirubin 1.5 H (0.0-1.0) mg/dL AST 14 (5-37) U/L ALT 11 (0-40) U/L Alkaline Phosphatase 107 (39-117) U/L Albumin 3.5 (3.5-5.0) g/dL Urine 10/25/22 Range/Units 05:33 Urine Color Yellow Urine Appearance Turbid Urine pH 6.5 (5.0-9.0) Ur Specific [place] 1.015 (1.005-1.025) Urine Protein 100 (2+) H (Neg-Trace) mg/dL Urine Glucose (UA) Negative (Negative) mg/dL Assessment and Plan (1) GI bleed: Status: Resolved (2) Elevated troponin: Status: Resolved (3) Atrial fibrillation, rapid: Status: Inactive (4) Gastrointestinal hemorrhage, unspecified: Status: Acute Plan 72 ym with history of paroxysmal atrial fibrillation not on anticoagulation, BPH, essential hypertension, insomnia, dementia, urinary incontinence [place] [facility] [place] [facility] for evaluation of dark stools and lethargy? Patient is a poor historian and does not know why he is here.? He is only oriented to self.? History obtained from chart review, hospitalist's notes and ER provider.? As per the custodial staff, patient was lethargic than usual.? In the ED, patient was found to be in a fib with RVR.? Creatinine and troponin found to be elevated. Pt found to have sepsis secondary to E coli pyelonephritis and bacteremia. No evidence of overt GI bleeding. H/H stable after volume resuscitation. Endoscopy not indicated at this time. ADDENDUM: HOSPITAL COURSE: Sepsis secondary to ecoli bacteremia and UTI. Sepsis resolved, treated with IV fluids. treated with IV ceftriaxone while inpatient. Will complete 10 more days of Ceftin. Acute GI bleed. Treated with IV Protonix. H&H has remained stable. No need for scope at this time. Can follow up outpatient with GI. Paroxysmal atrial fibrillation with rapid ventricular response. Resolved in the ER with IV metoprolol. Continue home dose of metoprolol. Not on anticoagulation appears to be because GI bleeding AMBREEN. Resolved with IV fluids, likely in the setting of UTI bacteremia Elevated troponin. Likely in the setting of type 2 demand ischemia secondary to AMBREEN. Essential hypertension . Continue home medications Mood disorder. Continue home mood stabilizers BPH. continue finasteride and Flomax Time Spent With Patient Time: Total time managing care of this patient today ____ minutes. Procedures Date of Service Date of Service: 10/25/22
--- NOTE | 2022-10-25 07:07 | PHA.MEDREC ---
Pharmacy Consult ? Medication Reconciliation Pharmacy has reviewed the medication reconciliation.
--- NOTE | 2022-10-25 07:29 | PC.NURSE ---
Confusion noted patient alert oriented to person confused to time place and situation. Ontiveros draining brain colored urine. No distress noted denies pain will CTM
[2022-10-25 07:38] LABS: Reflex Lactate? Lactic Acid Added
[2022-10-25 08:07] LABS: ~Lactic Acid-LAB USE ONLY 1.4 mmol/L (0.5-2.0)
--- NOTE | 2022-10-25 09:17 | PC.NURSE ---
Inpatient PA at bedside
[2022-10-25 09:47] LABS: COVID-19 Test Negative (Negative); IDNOW Serial# 9DB6401D
--- NOTE | 2022-10-25 10:44 | PC.NURSE ---
Patient able to puff cheeks volitional cough and tolerate small and large sip of water without cough or change in voice able to manage secretions will CTM
--- NOTE | 2022-10-25 10:44 | MHC.CM.PN ---
Patient has a diagnosis of Dementia; CM spoke with HCP/Alexis @ [phone] and addressed IMM with him (original to be mailed certified mail to Alexis and a copy to be placed on the chart). Patient is a LTC Rsident at [facility] (Medicaid bed hold)and the goal is for him to return there once medically cleared for dc. CM has initiated and will follow for dc planning.
[2022-10-25] MEDS: busPIRone HCl 5 MG TABLET PO (10:55)
[2022-10-25] MEDS: Metoprolol Tartrate 25 MG TABLET PO (10:55)
--- NOTE | 2022-10-25 11:53 | P.CONCA_ITS ---
History of Present Illness History of Present Illness Date of Service: 10/25/22 Requesting physician: Laine Simon Chief complaint: GI Bleed, preop assessment Narrative: 72-year-old gentleman who is presenting from group home with tox to went concern for GI bleed. He has been found to be septic with urinary tract infection and has been started on antibiotics. He is quite confused and unable to give any history. Awake and able to answer simple question and denies chest discomfort shortness of breath. He was noticed to have mildly elevated high sen sitivity troponin levels with troponins of 86, 101 and 89. Lactate was 3.7. His creatinine is 1.67 and 1.73. History is limited from the patient. Overall has been hemodynamically stable. EKGs reviewed and couple of them appears like atrial fibrillation. He has right bundle-branch block. [facility] Past Medical History Medical History (Updated 10/24/22 @ 23:57 by Sheeba Romero MD) BPH (benign prostatic hyperplasia) Dementia Essential hypertension Insomnia Paroxysmal atrial fibrillation Urinary incontinence Social History Social History Alcohol intake: never Patient Tobacco Use Status: Tobacco use Unknown Smoked in Last 30 Days: No Use of substances other than those prescribed or required for medical reasons: No Advance Directives: Yes Advance Directives on File: Yes Advance Directives Date on File: 08/21/22 service: No Current occupational status: retired Meds Allergies Allergy/AdvReac Type Severity Reaction Status Date / Time cats Allergy Unknown Unknown Uncoded 08/20/22 16:10 Active Medications: Current Medications Acetaminophen (Acetaminophen 325 Mg Tablet) 650 mg PO Q6H PRN PRN Reason: Pain, Mild (Pain Scale 1-3) Acetaminophen (Acetaminophen Supp 650 Mg Supp.Rect) 650 mg [place] Q6H PRN PRN Reason: Pain, Mild (Pain Scale 1-3) Buspirone HCl (Buspirone Hcl 5 Mg Tablet) 5 mg PO DAILY [facility] Last Admin: 10/25/22 10:55 Dose: 5 mg Finasteride (Finasteride 5 Mg Tablet) 5 mg PO DAILY [facility] Ceftriaxone Sodium 1 gm/ (Sodium Chloride) 50 mls @ 100 mls/hr IV Q24H [facility] Last Infusion: 10/25/22 06:15 Dose: Infused Melatonin (Melatonin 3 Mg Tablet) 6 mg PO BEDTIME PRN PRN Reason: Insomnia Metoprolol Tartrate (Metoprolol Tartrate 25 Mg Tablet) 25 mg PO DAILY [facility]; Protocol Last Admin: 10/25/22 10:55 Dose: 25 mg Ondansetron HCl (Ondansetron Hcl 4 Mg/2 Ml Vial) 4 mg IVPUSH Q8H PRN PRN Reason: Nausea and Vomiting Pharmacy Consult (Consult Rx Perform Med Rec) 1 each MISCELLANE ONCE PRN PRN Reason: Consult order Sodium Chloride (0.9 % Sodium Chloride Flush 3 Ml Syringe) 3 ml IVFLUSH QSHIFT [facility] Last Admin: 10/25/22 07:37 Dose: 3 ml Tamsulosin HCl (Tamsulosin Hcl 0.4 Mg Capsule) 0.4 mg PO DAILY [facility] Home Medications Medication Instructions Recorded Confirmed Last Taken Type amlodipine 10 mg tablet 1 tab PO DAILY 10/25/22 10/25/22 Unknown History atorvastatin 20 mg tablet 1 tab PO DAILY 10/25/22 10/25/22 Unknown History buspirone 5 mg tablet 1 tab PO DAILY 10/25/22 10/25/22 Unknown History erythromycin ethylsuccinate 200 200 mg PO DAILY 10/25/22 10/25/22 Unknown History mg/5 mL oral powder for suspension finasteride 5 mg tablet 1 tab PO DAILY 10/25/22 10/25/22 Unknown History lisinopril 5 mg tablet 1 tab PO DAILY 10/25/22 10/25/22 Unknown History metoprolol tartrate 25 mg tablet 1 tab PO DAILY 10/25/22 10/25/22 Unknown History tamsulosin 0.4 mg capsule 1 cap PO DAILY 10/25/22 10/25/22 Unknown History Physical Exam Vital Signs: Vital Signs: Last Vital Signs Temp 98.2 F 10/25/22 11:06 Pulse 104 H 10/25/22 11:06 Resp 25 H 10/25/22 11:06 BP 113/70 10/25/22 11:06 Pulse Ox 96 10/25/22 11:06 O2 Del Method 10/25/22 11:06 BMI result Body Mass Index 26.5 GENERAL APPEARANCE: in no acute distress, sleepy but arousable. Confused. NECK: no carotid bruit, no jugular venous distention. SKIN: no suspicious lesions, warm and dry. HEART: no murmurs, regular rate and rhythm. LUNGS: clear to auscultation bilaterally. ABDOMEN: soft, nontender. EXTREMITIES: no edema. PERIPHERAL PULSES: equal. NEUROLOGIC: No gross deficits, AAO X 3 Objective Labs and Meds 10/25/22 05:33 10/25/22 05:33 Lab results: Laboratory Results - last 24 hr 10/24/22 10/24/22 10/24/22 19:29 19:29 19:29 WBC 8.4 RBC 4.14 L Hgb 13.1 L Hct 39.1 L MCV 94.4 MCH 31.6 MCHC 33.5 RDW 14.6 Plt Count 196 MPV 8.8 L Immature Gran % (Auto) 0.6 H Neut % (Auto) 95.5 H Lymph % (Auto) 2.8 L [place] % (Auto) 0.7 L Eos % (Auto) 0.0 Baso % (Auto) 0.4 Lymph # (Auto) 0.2 L [place] # (Auto) 0.1 Eos # (Auto) 0.0 Baso # (Auto) 0.0 Abs Immat Gran (auto) 0.05 H Absolute Neuts (auto) 8.1 Absolute Nucleated RBC 0.000 Nucleated RBC % (auto) 0.0 Neutrophils % (Manual) Band Neutrophils % Lymphocytes % (Manual) Monocytes % (Manual) Metamyelocytes % Abs Neuts (Manual) Lymphocytes # (Manual) Monocytes # (Manual) Metamyelocytes # Toxic Vacuolation Dohle Bodies Platelet Estimate Plt Morphology Comment RBC Morphology Kannan Cells Acanthocytes (Spur) Smear Tech's Comments VERIFIED Sodium 141 Potassium 3.4 Chloride 111 H Carbon Dioxide 13 L Anion Gap 20 BUN 34 H Creatinine 1.67 H Estim Creat Clear Calc 40.0 Estimated GFR 40 Random Glucose 95 Lactic Acid Lactic Acid F/U @ 2Hr Calcium 8.6 Total Bilirubin 1.5 H AST 14 ALT 11 Alkaline Phosphatase 107 Troponin I High Sens 86.7 H Total Protein 5.7 L Albumin 3.5 Urine Color Urine Appearance Urine pH Ur Specific [place] Urine Protein Urine Glucose (UA) Urine Ketones Urine Blood Urine Nitrite Ur Leukocyte Esterase Urine RBC Urine WBC Ur Squamous Epith Cells Urine Bacteria Hyaline Casts COVID-19 ([place]) COVID-19 Clin Com 10/24/22 10/25/22 10/25/22 22:56 05:33 05:33 WBC 25.8 H RBC 4.38 L Hgb 13.6 L Hct 41.1 L MCV 93.8 MCH 31.1 MCHC 33.1 RDW 15.0 Plt Count 182 MPV 9.1 L Immature Gran % (Auto) Cancelled Neut % (Auto) Cancelled Lymph % (Auto) Cancelled [place] % (Auto) Cancelled Eos % (Auto) Cancelled Baso % (Auto) Cancelled Lymph # (Auto) Cancelled [place] # (Auto) Cancelled Eos # (Auto) Cancelled Baso # (Auto) Cancelled Abs Immat Gran (auto) Cancelled Absolute Neuts (auto) Cancelled Absolute Nucleated RBC 0.000 Nucleated RBC % (auto) 0.0 Neutrophils % (Manual) 77 H Band Neutrophils % 15 H Lymphocytes % (Manual) 6 L Monocytes % (Manual) 1 L Metamyelocytes % 1 Abs Neuts (Manual) 23.7 H Lymphocytes # (Manual) 1.5 Monocytes # (Manual) 0.3 Metamyelocytes # 0.3 Toxic Vacuolation PRESENT Dohle Bodies PRESENT Platelet Estimate NORMAL Plt Morphology Comment NORMAL RBC Morphology NOTED Kannan Cells 1+ (0-2) Acanthocytes (Spur) 1+ (0-2) Smear Tech's Comments Sodium 142 Potassium 4.4 D Chloride 112 H Carbon Dioxide 15 L Anion Gap 19 BUN 43 H Creatinine 1.73 H Estim Creat Clear Calc 38.6 Estimated GFR 39 Random Glucose 90 Lactic Acid Lactic Acid F/U @ 2Hr Calcium 8.7 Total Bilirubin AST ALT Alkaline Phosphatase Troponin I High Sens 101.2 H* Total Protein Albumin Urine Color Urine Appearance Urine pH Ur Specific [place] Urine Protein Urine Glucose (UA) Urine Ketones Urine Blood Urine Nitrite Ur Leukocyte Esterase Urine RBC Urine WBC Ur Squamous Epith Cells Urine Bacteria Hyaline Casts COVID-19 ([place]) COVID-19 Clin Com 10/25/22 10/25/22 10/25/22 05:33 05:33 05:33 WBC RBC Hgb Hct MCV MCH MCHC RDW Plt Count MPV Immature Gran % (Auto) Neut % (Auto) Lymph % (Auto) [place] % (Auto) Eos % (Auto) Baso % (Auto) Lymph # (Auto) [place] # (Auto) Eos # (Auto) Baso # (Auto) Abs Immat Gran (auto) Absolute Neuts (auto) Absolute Nucleated RBC Nucleated RBC % (auto) Neutrophils % (Manual) Band Neutrophils % Lymphocytes % (Manual) Monocytes % (Manual) Metamyelocytes % Abs Neuts (Manual) Lymphocytes # (Manual) Monocytes # (Manual) Metamyelocytes # Toxic Vacuolation Dohle Bodies Platelet Estimate Plt Morphology Comment RBC Morphology [place] Cells Acanthocytes (Spur) Smear Tech's Comments Sodium Potassium Chloride Carbon Dioxide Anion Gap BUN Creatinine Estim Creat Clear Calc Estimated GFR Random Glucose Lactic Acid 3.7 H* Lactic Acid F/U @ 2Hr Calcium Total Bilirubin AST ALT Alkaline Phosphatase Troponin I High Sens 89.5 H Total Protein Albumin Urine Color Yellow Urine Appearance Turbid Urine pH 6.5 Ur Specific [place] 1.015 Urine Protein 100 (2+) H Urine Glucose (UA) Negative Urine Ketones Negative Urine Blood Large (3+) H Urine Nitrite Negative Ur Leukocyte Esterase Large (3+) H Urine RBC >20 H Urine WBC >50 H Ur Squamous Epith Cells 6-10 Urine Bacteria 4+ Hyaline Casts >20 COVID-19 ([place]) COVID-19 RUNform 10/25/22 10/25/22 07:48 09:31 WBC RBC Hgb Hct MCV MCH MCHC RDW Plt Count MPV Immature Gran % (Auto) Neut % (Auto) Lymph % (Auto) [place] % (Auto) Eos % (Auto) Baso % (Auto) Lymph # (Auto) [place] # (Auto) Eos # (Auto) Baso # (Auto) Abs Immat Gran (auto) Absolute Neuts (auto) Absolute Nucleated RBC Nucleated RBC % (auto) Neutrophils % (Manual) Band Neutrophils % Lymphocytes % (Manual) Monocytes % (Manual) Metamyelocytes % Abs Neuts (Manual) Lymphocytes # (Manual) Monocytes # (Manual) Metamyelocytes # Toxic Vacuolation Dohle Bodies Platelet Estimate Plt Morphology Comment RBC Morphology [place] Cells Acanthocytes (Spur) Smear Tech's Comments Sodium Potassium Chloride Carbon Dioxide Anion Gap BUN Creatinine Estim Creat Clear Calc Estimated GFR Random Glucose Lactic Acid Lactic Acid F/U @ 2Hr 1.4 Calcium Total Bilirubin AST ALT Alkaline Phosphatase Troponin I High Sens Total Protein Albumin Urine Color Urine Appearance Urine pH Ur Specific [place] Urine Protein Urine Glucose (UA) Urine Ketones Urine Blood Urine Nitrite Ur Leukocyte Esterase Urine RBC Urine WBC Ur Squamous Epith Cells Urine Bacteria Hyaline Casts COVID-19 ([place]) Negative COVID-19 Clin Com See Note Imaging Radiologist's impression: Impressions Abdomen/Pelvis CT 10/25/22 04:55 IMPRESSION: 1. Significant distention of the bladder. There is a Ontiveros catheter with the balloon inflated in the prostate. There is associated bilateral mild to moderate hydroureteronephrosis. There is perinephric stranding, left greater than right. Cannot exclude associated infectious process. 2. Small volume of free fluid in the abdomen. No convincing evidence of free air. Fleischner guidelines were followed. Assessment and Plan (1) Paroxysmal atrial fibrillation: Status: Acute (2) Elevated troponin: Status: Acute (3) Dementia: Status: Acute (4) GI bleed: Status: Acute Plan [age] year old gentleman presenting with confusion due to urine tract infection and concern for GI bleed. He has paroxysmal atrial fibrillation. It appears he has not been on anticoagulation which is unclear to me. Please get records from primary care physician or if he is known to our cardiology group. He has mildly elevated troponin levels in the setting of elevated creatinine and AFib with RVR. This is a type 2 event. He is overall intermediate risk for perioperative complications in case he needs endoscopy. Was BP stable and improving from sepsis point of view then consider adding low- dose beta-sigrid. In the meantime if he has AFib with RVR then I will try digoxin loading. Please clear why he has not been on anticoagulation with his primary care physician. Thank you for allowing me to participate in the care of your patient. Please feel free to contact me if you have any questions. Time Spent With Patient Time: Total time managing care of this patient today ____ minutes. Procedures Date of Service Date of Service: 10/25/22
--- NOTE | 2022-10-25 12:35 | P.PNIM_ITS ---
Subjective Subjective Date of Service: 10/25/22 Interval History: seen and examined this morning follow up for multiple issues, UTI, GI bleeding patient awake, alert confused, appears confortable - unable to provide any significant history unable to obtain reliable ROS Physical Exam Vital Signs: Vital Signs: Last Vital Signs Temp 98.2 F 10/25/22 11:06 Pulse 104 H 10/25/22 11:06 Resp 25 H 10/25/22 11:06 BP 113/70 10/25/22 11:06 Pulse Ox 96 10/25/22 11:06 O2 Del Method 10/25/22 11:06 BMI result Body Mass Index 26.5 Const: General: comfortable, alert and awake Nutritional Appearance: thin Orientation/consciousness: oriented to person Resp: Effort & Inspection: normal respiratory effort, able to speak in complete sentences and no respiratory distress Cardio: Rate: regular rate Heart sounds: S1 normal heart sound present and S2 normal heart sound present GI: Inspection: No distended Palpation (GI): Soft to palpation Neuro: Other: grossly nonfocal General: oriented to person Extrem: General: Yes no pedal edema Objective Data Active Medications Acetaminophen (Acetaminophen 325 Mg Tablet) 650 mg PO Q6H PRN PRN Reason: Pain, Mild (Pain Scale 1-3) Acetaminophen (Acetaminophen Supp 650 Mg Supp.Rect) 650 mg [place] Q6H PRN PRN Reason: Pain, Mild (Pain Scale 1-3) Buspirone HCl (Buspirone Hcl 5 Mg Tablet) 5 mg PO DAILY [facility] Last Admin: 10/25/22 10:55 Dose: 5 mg Documented By: KRISS Finasteride (Finasteride 5 Mg Tablet) 5 mg PO DAILY [facility] Ceftriaxone Sodium 1 gm/ (Sodium Chloride) 50 mls @ 100 mls/hr IV Q24H [facility] Last Infusion: 10/25/22 06:15 Dose: 0 mls/hr Documented By: IRON Melatonin (Melatonin 3 Mg Tablet) 6 mg PO BEDTIME PRN PRN Reason: Insomnia Metoprolol Tartrate (Metoprolol Tartrate 25 Mg Tablet) 25 mg PO DAILY [facility]; Protocol Last Admin: 10/25/22 10:55 Dose: 25 mg Documented By: KRISS Ondansetron HCl (Ondansetron Hcl 4 Mg/2 Ml Vial) 4 mg IVPUSH Q8H PRN PRN Reason: Nausea and Vomiting Pharmacy Consult (Consult Rx Perform Med Rec) 1 each MISCELLANE ONCE PRN PRN Reason: Consult order Sodium Chloride (0.9 % Sodium Chloride Flush 3 Ml Syringe) 3 ml IVFLUSH QSHIFT [facility] Last Admin: 10/25/22 07:37 Dose: 3 ml Documented By: KRISS Tamsulosin HCl (Tamsulosin Hcl 0.4 Mg Capsule) 0.4 mg PO DAILY [facility] Labs 10/25/22 05:33 10/25/22 05:33 Labs: Laboratory Results - last 24 hr 10/24/22 10/24/22 10/24/22 19:29 19:29 19:29 MCV 94.4 MCH 31.6 MCHC 33.5 RDW 14.6 Plt Count 196 MPV 8.8 L Immature Gran % (Auto) 0.6 H Neut % (Auto) 95.5 H Lymph % (Auto) 2.8 L [place] % (Auto) 0.7 L Eos % (Auto) 0.0 Baso % (Auto) 0.4 Lymph # (Auto) 0.2 L [place] # (Auto) 0.1 Eos # (Auto) 0.0 Baso # (Auto) 0.0 Abs Immat Gran (auto) 0.05 H Absolute Neuts (auto) 8.1 Absolute Nucleated RBC 0.000 Nucleated RBC % (auto) 0.0 Neutrophils % (Manual) Band Neutrophils % Lymphocytes % (Manual) Monocytes % (Manual) Metamyelocytes % Abs Neuts (Manual) Lymphocytes # (Manual) Monocytes # (Manual) Metamyelocytes # Toxic Vacuolation Dohle Bodies Platelet Estimate Plt Morphology Comment RBC Morphology Kann[place] Cells Acanthocytes (Spur) Smear Tech's Comments VERIFIED Anion Gap 20 Estim Creat Clear Calc 40.0 Estimated GFR 40 Random Glucose 95 Lactic Acid Lactic Acid F/U @ 2Hr Calcium 8.6 Total Bilirubin 1.5 H AST 14 ALT 11 Alkaline Phosphatase 107 Troponin I High Sens 86.7 H Total Protein 5.7 L Albumin 3.5 Urine Color Urine Appearance Urine pH Ur Specific [place] Urine Protein Urine Glucose (UA) Urine Ketones Urine Blood Urine Nitrite Ur Leukocyte Esterase Urine RBC Urine WBC Ur Squamous Epith Cells Urine Bacteria Hyaline Casts COVID-19 ([place]) COVID-19 Clin Com 02/16/23 02/17/23 02/17/23 22:56 05:33 05:33 MCV 93.8 MCH 31.1 MCHC 33.1 RDW 15.0 Plt Count 182 MPV 9.1 L Immature Gran % (Auto) Cancelled Neut % (Auto) Cancelled Lymph % (Auto) Cancelled [place] % (Auto) Cancelled Eos % (Auto) Cancelled Baso % (Auto) Cancelled Lymph # (Auto) Cancelled [place] # (Auto) Cancelled Eos # (Auto) Cancelled Baso # (Auto) Cancelled Abs Immat Gran (auto) Cancelled Absolute Neuts (auto) Cancelled Absolute Nucleated RBC 0.000 Nucleated RBC % (auto) 0.0 Neutrophils % (Manual) 77 H Band Neutrophils % 15 H Lymphocytes % (Manual) 6 L Monocytes % (Manual) 1 L Metamyelocytes % 1 Abs Neuts (Manual) 23.7 H Lymphocytes # (Manual) 1.5 Monocytes # (Manual) 0.3 Metamyelocytes # 0.3 Toxic Vacuolation PRESENT Dohle Bodies PRESENT Platelet Estimate NORMAL Plt Morphology Comment NORMAL RBC Morphology NOTED [place] Cells 1+ (0-2) Acanthocytes (Spur) 1+ (0-2) Smear Tech's Comments Anion Gap 19 Estim Creat Clear Calc 38.6 Estimated GFR 39 Random Glucose 90 Lactic Acid Lactic Acid F/U @ 2Hr Calcium 8.7 Total Bilirubin AST ALT Alkaline Phosphatase Troponin I High Sens 101.2 H* Total Protein Albumin Urine Color Urine Appearance Urine pH Ur Specific [place] Urine Protein Urine Glucose (UA) Urine Ketones Urine Blood Urine Nitrite Ur Leukocyte Esterase Urine RBC Urine WBC Ur Squamous Epith Cells Urine Bacteria Hyaline Casts COVID-19 ([place]) COVID-19 Clin Com 10/25/22 10/25/22 10/25/22 05:33 05:33 05:33 MCV MCH MCHC RDW Plt Count MPV Immature Gran % (Auto) Neut % (Auto) Lymph % (Auto) [place] % (Auto) Eos % (Auto) Baso % (Auto) Lymph # (Auto) [place] # (Auto) Eos # (Auto) Baso # (Auto) Abs Immat Gran (auto) Absolute Neuts (auto) Absolute Nucleated RBC Nucleated RBC % (auto) Neutrophils % (Manual) Band Neutrophils % Lymphocytes % (Manual) Monocytes % (Manual) Metamyelocytes % Abs Neuts (Manual) Lymphocytes # (Manual) Monocytes # (Manual) Metamyelocytes # Toxic Vacuolation Dohle Bodies Platelet Estimate Plt Morphology Comment RBC Morphology Kannan Cells Acanthocytes (Spur) Smear Tech's Comments Anion Gap Estim Creat Clear Calc Estimated GFR Random Glucose Lactic Acid 3.7 H* Lactic Acid F/U @ 2Hr Calcium Total Bilirubin AST ALT Alkaline Phosphatase Troponin I High Sens 89.5 H Total Protein Albumin Urine Color Yellow Urine Appearance Turbid Urine pH 6.5 Ur Specific [place] 1.015 Urine Protein 100 (2+) H Urine Glucose (UA) Negative Urine Ketones Negative Urine Blood Large (3+) H Urine Nitrite Negative Ur Leukocyte Esterase Large (3+) H Urine RBC >20 H Urine WBC >50 H Ur Squamous Epith Cells 6-10 Urine Bacteria 4+ Hyaline Casts >20 COVID-19 ([place]) COVID-19 [facility] 10/25/22 10/25/22 07:48 09:31 MCV MCH MCHC RDW Plt Count MPV Immature Gran % (Auto) Neut % (Auto) Lymph % (Auto) [place] % (Auto) Eos % (Auto) Baso % (Auto) Lymph # (Auto) [place] # (Auto) Eos # (Auto) Baso # (Auto) Abs Immat Gran (auto) Absolute Neuts (auto) Absolute Nucleated RBC Nucleated RBC % (auto) Neutrophils % (Manual) Band Neutrophils % Lymphocytes % (Manual) Monocytes % (Manual) Metamyelocytes % Abs Neuts (Manual) Lymphocytes # (Manual) Monocytes # (Manual) Metamyelocytes # Toxic Vacuolation Dohle Bodies Platelet Estimate Plt Morphology Comment RBC Morphology [place] Cells Acanthocytes (Spur) Smear Tech's Comments Anion Gap Estim Creat Clear Calc Estimated GFR Random Glucose Lactic Acid Lactic Acid F/U @ 2Hr 1.4 Calcium Total Bilirubin AST ALT Alkaline Phosphatase Troponin I High Sens Total Protein Albumin Urine Color Urine Appearance Urine pH Ur Specific [place] Urine Protein Urine Glucose (UA) Urine Ketones Urine Blood Urine Nitrite Ur Leukocyte Esterase Urine RBC Urine WBC Ur Squamous Epith Cells Urine Bacteria Hyaline Casts COVID-19 ([place]) Negative COVID-19 Drip In Com See Note Assessment and Plan (1) GI bleed: Status: Acute (2) Dementia: Status: Acute (3) Urinary tract infection: Status: Inactive Plan This is a 72-year-old male with pertinent history of paroxysmal atrial fibrillation not on anticoagulation, BPH, essential hypertension, insomnia, dementia, urinary incontinence who was sent from [facility] for evaluation of dark stools. Sepsis secondary to UTI met criteria with leukocytosis, tachycardia, tachypnea lactic acid 3.7, resolved with IVF continue IV ceftraixone, follow urine culture, blood cultures Acute GI bleed: IV Protonix seen by GI - rec cards clearance due to elevated troponin H/H stable - conservative management for now clear liquids for now Paroxysmal AFib with RVR, in the setting of above: HR improved in ER with IV metoprolol pushes continue home dose of metoprolol not on AC - pt unable to provide reason Acute kidney injury stage I, prerenal: unclear baseline, no significant change in SCr overnight continue gentle IVF follow renal function Elevated troponin likely type 2 in the setting of increased demand/decreased clearance due to martina seen by cardiology intermediate risk for any planned procedure Essential hypertension: Hold antihypertensives in the setting of GI bleed Mood disorder: Continue home mood stabilizers BPH: continue finasteride and Flomax Dementia, unspecified: Maintain sleep-wake cycle DVT prophylaxis: Mechanical Presumed full code - d/w HCP, he is unsure of what paperwork says - will try to get MOLST from facility baseline diet - mechanical soft/thin liqs requires ongoing inpatient stay for IV abx, specialist eval for GI bleeding and close monitoring of renal function Time Spent With Patient Time: Total time managing care of this patient today ____ minutes. Quality Stroke Does the patient have a stroke diagnosis?: No VTE Prior VTE?: No VTE Risk Level:: Medical - moderate - high VTE Device Contraindication: N/A - Device Ordered VTE Drug Contraindication: Treatment Not Indicated
[2022-10-25] MEDS: 0.9 % Sodium Chloride 1,000 ML 80 ML IVCONT (13:04)
--- NOTE | 2022-10-25 13:41 | ECG_ITS ---
Test Reason : CP Blood Pressure : / mmHG Vent. Rate : 142 BPM Atrial Rate : 166 BPM P-R Int : 000 ms QRS Dur : 128 ms QT Int : 332 ms P-R-T Axes : 000 -38 041 degrees QTc Int : 510 ms Atrial fibrillation with RVR Left axis deviation Right bundle branch block Abnormal ECG When compared with ECG of 24-OCT-2022 23:35, Atrial fibrillation Present Referred By: Ananth Romero Electronically Signed By:Chris Bustos
--- NOTE | 2022-10-25 15:51 | PC.NURSE ---
Report to Syeda KRUEGER RN will prepare for transfer.
--- NOTE | 2022-10-25 19:41 | PC.NURSE ---
Pt is asking frequently for his cellphone, This RN called his facility [facility] and spoke with Eli staff member regarding pt's cellphone . Eli clarified that pt's celphone is in his room at the facility
[2022-10-26] VITALS (7 sets, daily range): BP systolic 103–148; BP diastolic 60–91; PULSE 60–85; RESP 14–19; TEMP 36.6–37.7; O2SAT 95–97
[2022-10-26] MEDS: 0.9 % Sodium Chloride Flush 3 ML SYRINGE IVFLUSH ×4 (00:10→21:23)
[2022-10-26] MEDS: 0.9 % Sodium Chloride 1,000 ML 80 ML IVCONT ×2 (03:51→13:26)
[2022-10-26] MEDS: cefTRIAXone sodium 1 GM in 0.9 % Sodium Chloride 50 ML IV (06:25)
[2022-10-26] MEDS: Pantoprazole Sodium 40 MG/10 ML VIAL IVPUSH (06:25)
[2022-10-26] MEDS: Tamsulosin HCL 0.4 MG CAPSULE PO (09:43)
[2022-10-26] MEDS: busPIRone HCl 5 MG TABLET PO (09:44)
[2022-10-26] MEDS: Finasteride 5 MG TABLET PO (09:44)
[2022-10-26] MEDS: Metoprolol Tartrate 25 MG TABLET PO (09:45)
--- NOTE | 2022-10-26 12:36 | P.PNIM_ITS ---
Subjective Subjective Date of Service: 10/26/22 Interval History: seen and examined this morning follow up for multiple issues, UTI, GI bleeding patient awake, alert confused, appears confortable - unable to provide any significant history unable to obtain reliable ROS Physical Exam Vital Signs: Vital Signs: Last Vital Signs Temp 98 F 10/26/22 12:00 Pulse 62 10/26/22 12:00 Resp 19 10/26/22 12:00 BP 117/73 10/26/22 12:00 Pulse Ox 97 10/26/22 12:00 O2 Del Method 10/26/22 12:00 BMI result Body Mass Index 26.5 Appearing in no acute distress lung sounds are clear to auscultation heart regular rate rhythm, clear S1, S2 positive bowel sounds, abdomen is soft, nontender neuro patient is alert, confused Objective Data Active Medications Acetaminophen (Acetaminophen 325 Mg Tablet) 650 mg PO Q6H PRN PRN Reason: Pain, Mild (Pain Scale 1-3) Acetaminophen (Acetaminophen Supp 650 Mg Supp.Rect) 650 mg [place] Q6H PRN PRN Reason: Pain, Mild (Pain Scale 1-3) Buspirone HCl (Buspirone Hcl 5 Mg Tablet) 5 mg PO DAILY [facility] Last Admin: 10/26/22 09:44 Dose: 5 mg Documented By: RANDA Finasteride (Finasteride 5 Mg Tablet) 5 mg PO DAILY [facility] Last Admin: 10/26/22 09:44 Dose: 5 mg Documented By: RANDA Ceftriaxone Sodium 1 gm/ (Sodium Chloride) 50 mls @ 100 mls/hr IV Q24H [facility] Last Infusion: 10/26/22 07:22 Dose: 0 mls/hr Documented By: RANDA Sodium Chloride (Ns) 1,000 mls @ 80 mls/hr IVCONT .[id number] [facility] Last Admin: 10/26/22 03:51 Dose: 80 mls/hr Documented By: ELVIE Melatonin (Melatonin 3 Mg Tablet) 6 mg PO BEDTIME PRN PRN Reason: Insomnia Metoprolol Tartrate (Metoprolol Tartrate 25 Mg Tablet) 25 mg PO DAILY [facility]; Protocol Last Admin: 10/26/22 09:45 Dose: 25 mg Documented By: RANDA Ondansetron HCl (Ondansetron Hcl 4 Mg/2 Ml Vial) 4 mg IVPUSH Q8H PRN PRN Reason: Nausea and Vomiting Pantoprazole Sodium (Pantoprazole Sodium 40 Mg/10 Ml Vial) 40 mg IVPUSH DAILY@0630 [facility] Last Admin: 10/26/22 06:25 Dose: 40 mg Documented By: IRINA Pharmacy Consult (Consult Rx Perform Med Rec) 1 each MISCELLANE ONCE PRN PRN Reason: Consult order Sodium Chloride (0.9 % Sodium Chloride Flush 3 Ml Syringe) 3 ml IVFLUSH QSHIFT [facility] Last Admin: 10/26/22 09:45 Dose: 3 ml Documented By: RANDA Tamsulosin HCl (Tamsulosin Hcl 0.4 Mg Capsule) 0.4 mg PO DAILY [facility] Last Admin: 10/26/22 09:43 Dose: 0.4 mg Documented By: RANDA Labs 10/25/22 05:33 10/25/22 05:33 Microbiology Microbiology Results: Microbiology 10/25/22 00:00 Urine Culture - Preliminary Urine Catheterized - Ontiveros Catheter Gram negative nancy 10/25/22 05:33 Blood Culture - Preliminary Blood - Venous Gram negative nancy 10/25/22 05:33 Blood Culture - Preliminary Blood - Venous Gram negative nancy Assessment and Plan (1) GI bleed: Status: Acute (2) Dementia: Status: Acute (3) Urinary tract infection: Status: Inactive Plan This is a 72-year-old male with pertinent history of paroxysmal atrial fibrillation not on anticoagulation, BPH, essential hypertension, insomnia, dementia, urinary incontinence who was sent from [facility] for evaluation of dark stools. Sepsis secondary to GNR UTI sepsis resolved met criteria with leukocytosis, tachycardia, tachypnea lactic acid 3.7, resolved with IVF continue IV ceftriaxone, follow urine culture, blood cultures GNR bacteremia continue rocephin follow final cx Acute GI bleed IV Protonix seen by GI - rec cards clearance due to elevated troponin H/H stable - conservative management for now clear liquids for now Paroxysmal AFib with RVR, in the setting of above: HR improved in ER with IV metoprolol pushes continue home dose of metoprolol not on AC - pt unable to provide reason Acute kidney injury stage I, prerenal unclear baseline, no significant change in SCr overnight continue gentle IVF follow renal function Elevated troponin likely type 2 in the setting of increased demand/decreased clearance due to martina seen by cardiology intermediate risk for any planned procedure Essential hypertension Hold antihypertensives in the setting of GI bleed Mood disorder Continue home mood stabilizers BPH continue finasteride and Flomax Dementia, unspecified: Maintain sleep-wake cycle DVT prophylaxis: Mechanical Presumed full code - d/w HCP, he is unsure of what paperwork says - will try to get MOLST from facility attending Dr. Harrell DISPO back to [facility] once medically cleared requires ongoing inpatient stay for IV abx, specialist eval for GI bleeding and close monitoring of renal function Time Spent With Patient Time: Total time managing care of this patient today ____ minutes. Quality Stroke Does the patient have a stroke diagnosis?: No VTE Prior VTE?: No VTE Risk Level:: Medical - moderate - high VTE Device Contraindication: N/A - Device Ordered VTE Drug Contraindication: Treatment Not Indicated
[2022-10-27] MEDS: 0.9 % Sodium Chloride 1,000 ML 80 ML IVCONT (01:57)
[2022-10-27 04:00] VITALS: BP 143/81; PULSE 78; RESP 14; TEMP 37.4; O2SAT 95
[2022-10-27] MEDS: Pantoprazole Sodium 40 MG/10 ML VIAL IVPUSH (05:55)
[2022-10-27] MEDS: cefTRIAXone sodium 1 GM in 0.9 % Sodium Chloride 50 ML IV (05:55)
[2022-10-27 06:29] LABS: Hematocrit 32.4 % (42.0-52.0); Mean Corpuscular Hemoglobin 31.5 pg (27.0-33.0); Mean Corpuscular Volume 92.8 fL (80.0-98.0); Mean Platelet Volume 9.6 fL (9.4-12.4); Platelet Count 150 X10*3/uL (160-400); Red Blood Count 3.49 X10*6/uL (4.60-5.80); Red Cell Distribution Width 14.5 % (11.0-16.0); White Blood Count 14.2 X10*3/uL (4.8-10.8)
[2022-10-27 06:47] LABS: Anion Gap 14 (12-20); Blood Urea Nitrogen 19 mg/dL (9-16); Calcium 7.6 mg/dL (8.4-10.2); Carbon Dioxide 16 mmol/L (22-29); Chloride 115 mmol/L (96-108); Creatinine Clr Calc Pharmacy 111.5; Estimated Glomerular Filt Rate > 60; Glucose Random 89 mg/dL (60-115); Potassium 3.2 mmol/L (3.3-5.1); Sodium 142 mmol/L (135-145)
[2022-10-27 08:00] VITALS: BP 150/82; PULSE 67; RESP 18; TEMP 36.5; O2SAT 96
[2022-10-27] MEDS: Metoprolol Tartrate 25 MG TABLET PO (08:05)
[2022-10-27] MEDS: Tamsulosin HCL 0.4 MG CAPSULE PO (08:05)
[2022-10-27] MEDS: busPIRone HCl 5 MG TABLET PO (08:05)
[2022-10-27] MEDS: Potassium Chloride Packet 20 MEQ PACKET 40 MEQ PO (08:05)
[2022-10-27] MEDS: Finasteride 5 MG TABLET PO (08:06)
[2022-10-27] MEDS: 0.9 % Sodium Chloride Flush 3 ML SYRINGE IVFLUSH ×3 (08:06→19:43)
--- NOTE | 2022-10-27 11:36 | HO.PM.IMPN ---
Subjective Subjective Date of Service: 10/27/22 Interval History: seen and examined this morning follow up for multiple issues, UTI, GI bleeding patient awake, alert confused, appears confortable - unable to provide any significant history unable to obtain reliable ROS Physical Exam Vital Signs: Vital Signs: Last Vital Signs Temp 97.7 F 10/27/22 08:00 Pulse 67 10/27/22 08:00 Resp 18 10/27/22 08:00 BP 150/82 H 10/27/22 08:00 Pulse Ox 96 10/27/22 08:00 O2 Del Method 10/27/22 08:00 BMI result Body Mass Index 26.5 Appearing in no acute distress lung sounds are clear to auscultation heart regular rate rhythm, clear S1, S2 positive bowel sounds, abdomen is soft, nontender neuro patient is alert, confused Objective Data Active Medications Acetaminophen (Acetaminophen 325 Mg Tablet) 650 mg PO Q6H PRN PRN Reason: Pain, Mild (Pain Scale 1-3) Acetaminophen (Acetaminophen Supp 650 Mg Supp.Rect) 650 mg [place] Q6H PRN PRN Reason: Pain, Mild (Pain Scale 1-3) Buspirone HCl (Buspirone Hcl 5 Mg Tablet) 5 mg PO DAILY [facility] Last Admin: 10/27/22 08:05 Dose: 5 mg Documented By: SADE Finasteride (Finasteride 5 Mg Tablet) 5 mg PO DAILY [facility] Last Admin: 10/27/22 08:06 Dose: 5 mg Documented By: SADE Ceftriaxone Sodium 1 gm/ (Sodium Chloride) 50 mls @ 100 mls/hr IV Q24H [facility] Last Infusion: 10/27/22 06:37 Dose: 0 mls/hr Documented By: ELVIE Sodium Chloride (Ns) 1,000 mls @ 80 mls/hr IVCONT .[id number] [facility] Last Admin: 10/27/22 01:57 Dose: 80 mls/hr Documented By: ELVIE Melatonin (Melatonin 3 Mg Tablet) 6 mg PO BEDTIME PRN PRN Reason: Insomnia Metoprolol Tartrate (Metoprolol Tartrate 25 Mg Tablet) 25 mg PO DAILY [facility]; Protocol Last Admin: 10/27/22 08:05 Dose: 25 mg Documented By: SADE Ondansetron HCl (Ondansetron Hcl 4 Mg/2 Ml Vial) 4 mg IVPUSH Q8H PRN PRN Reason: Nausea and Vomiting Pantoprazole Sodium (Pantoprazole Sodium 40 Mg/10 Ml Vial) 40 mg IVPUSH DAILY@0630 [facility] Last Admin: 10/27/22 05:55 Dose: 40 mg Documented By: ELVIE Pharmacy Consult (Consult Rx Perform Med Rec) 1 each MISCELLANE ONCE PRN PRN Reason: Consult order Sodium Chloride (0.9 % Sodium Chloride Flush 3 Ml Syringe) 3 ml IVFLUSH QSHIFT [facility] Last Admin: 10/27/22 08:06 Dose: 3 ml Documented By: SADE Tamsulosin HCl (Tamsulosin Hcl 0.4 Mg Capsule) 0.4 mg PO DAILY [facility] Last Admin: 10/27/22 08:05 Dose: 0.4 mg Documented By: SADE Labs 10/27/22 05:50 10/27/22 05:50 Labs: Laboratory Results - last 24 hr 10/27/22 10/27/22 05:50 05:50 MCV 92.8 MCH 31.5 MCHC 34.0 RDW 14.5 Plt Count 150 L MPV 9.6 Absolute Nucleated RBC 0.000 Nucleated RBC % (auto) 0.0 Anion Gap 14 Estim Creat Clear Calc 111.5 Estimated GFR > 60 Random Glucose 89 Calcium 7.6 L D Microbiology Microbiology Results: Microbiology 10/25/22 05:33 Blood Culture - Final Blood - Venous Escherichia coli 10/25/22 05:33 Blood Culture - Final Blood - Venous Escherichia coli 10/25/22 00:00 Urine Culture - Final Urine Catheterized - Ontiveros Catheter Escherichia coli Assessment and Plan (1) GI bleed: Status: Acute (2) Dementia: Status: Acute (3) Urinary tract infection: Status: Inactive Plan This is a 72-year-old male with pertinent history of paroxysmal atrial fibrillation not on anticoagulation, BPH, essential hypertension, insomnia, dementia, urinary incontinence who was sent from [facility] for evaluation of dark stools. Sepsis secondary to GNR UTI sepsis resolved met criteria with leukocytosis, tachycardia, tachypnea lactic acid 3.7, resolved with IVF continue IV ceftriaxone, follow urine culture, blood cultures Ecoli bacteremia continue rocephin ID consult Acute GI bleed IV Protonix seen by GI - rec cards clearance due to elevated troponin-cardio rec intermediate risk H/H stable - conservative management for now clear liquids for now Paroxysmal AFib with RVR, in the setting of above: HR improved in ER with IV metoprolol pushes continue home dose of metoprolol not on AC - pt unable to provide reason Acute kidney injury stage I, prerenal unclear baseline, no significant change in SCr overnight continue gentle IVF follow renal function Elevated troponin likely type 2 in the setting of increased demand/decreased clearance due to martina seen by cardiology intermediate risk for any planned procedure Essential hypertension Hold antihypertensives in the setting of GI bleed Mood disorder Continue home mood stabilizers BPH continue finasteride and Flomax Dementia, unspecified: Maintain sleep-wake cycle DVT prophylaxis: Mechanical Presumed full code - d/w HCP, he is unsure of what paperwork says - will try to get MOLST from facility attending Dr. Harrell DISPO back [facility] once medically cleared requires ongoing inpatient stay for IV abx, specialist eval for GI bleeding and close monitoring of renal function Time Spent With Patient Time: Total time managing care of this patient today ____ minutes. Quality Stroke Does the patient have a stroke diagnosis?: No VTE Prior VTE?: No VTE Risk Level:: Medical - moderate - high VTE Device Contraindication: N/A - Device Ordered VTE Drug Contraindication: Treatment Not Indicated
[2022-10-27 12:00] VITALS: BP 140/82; PULSE 69; RESP 18; TEMP 36.7; O2SAT 97
[2022-10-27 16:00] VITALS: BP 138/85; PULSE 81; RESP 18; TEMP 36.7
[2022-10-27 19:35] VITALS: BP 145/81; PULSE 60; RESP 15; TEMP 37; O2SAT 94
[2022-10-28 00:34] VITALS: BP 119/64; PULSE 67; RESP 14; TEMP 36.5; O2SAT 96
[2022-10-28 02:45] VITALS: BP 132/62; PULSE 63; RESP 14; TEMP 36.8; O2SAT 95
[2022-10-28] MEDS: Pantoprazole Sodium 40 MG/10 ML VIAL IVPUSH (05:18)
[2022-10-28] MEDS: cefTRIAXone sodium 1 GM in 0.9 % Sodium Chloride 50 ML IV (05:18)
[2022-10-28 07:16] LABS: Hematocrit 33.4 % (42.0-52.0); Hemoglobin 11.2 g/dl (14.0-18.0); Mean Corpuscular HGB Conc 33.5 g/dl (31.0-36.0); Mean Corpuscular Hemoglobin 31.5 pg (27.0-33.0); Mean Corpuscular Volume 93.8 fL (80.0-98.0); Mean Platelet Volume 9.5 fL (9.4-12.4); Platelet Count 153 X10*3/uL (160-400); Red Blood Count 3.56 X10*6/uL (4.60-5.80); Red Cell Distribution Width 14.4 % (11.0-16.0); White Blood Count 7.7 X10*3/uL (4.8-10.8)
[2022-10-28 07:23] VITALS: BP 182/85; PULSE 54; RESP 18; TEMP 36.4; O2SAT 97
[2022-10-28 07:37] LABS: Blood Urea Nitrogen 12 mg/dL (9-16); Calcium 7.7 mg/dL (8.4-10.2); Creatinine Clr Calc Pharmacy 106.2; Estimated Glomerular Filt Rate > 60; Glucose Random 92 mg/dL (60-115)
[2022-10-28 07:51] LABS: Anion Gap 10 (12-20); Carbon Dioxide 21 mmol/L (22-29); Chloride 111 mmol/L (96-108); Potassium 3.1 mmol/L (3.3-5.1); Sodium 139 mmol/L (135-145)
[2022-10-28] MEDS: Atorvastatin Calcium 20 MG TABLET PO (08:04)
[2022-10-28] MEDS: amLODIPine Besylate 10 MG TABLET PO (08:04)
[2022-10-28] MEDS: lisinopriL 5 MG TABLET PO (08:05)
[2022-10-28] MEDS: busPIRone HCl 5 MG TABLET PO (08:05)
[2022-10-28] MEDS: 0.9 % Sodium Chloride Flush 3 ML SYRINGE IVFLUSH (08:05)
[2022-10-28] MEDS: Finasteride 5 MG TABLET PO (08:05)
[2022-10-28] MEDS: Tamsulosin HCL 0.4 MG CAPSULE PO (08:05)
[2022-10-28] MEDS: Metoprolol Tartrate 25 MG TABLET PO (08:05)
--- NOTE | 2022-10-28 09:16 | MHC.CM.PN ---
pt to be dcd today at 12 back to [facility] caitlyn robertson notified of dc [phone]
[2022-10-28 09:30] VITALS: BP 134/68
--- NOTE | 2022-10-28 09:30 | ECG_ITS ---
Test Reason : chest pain Blood Pressure : / mmHG Vent. Rate : 067 BPM Atrial Rate : 067 BPM P-R Int : 204 ms QRS Dur : 146 ms QT Int : 444 ms P-R-T Axes : 042 -13 -20 degrees QTc Int : 469 ms Normal sinus rhythm Right bundle branch block Mild SD prolongation Abnormal ECG When compared with ECG of 25-OCT-2022 14:04, QT has shortened Referred By: Madina Chang Electronically Signed By:ELDA ARRIAZA
--- NOTE | 2022-10-28 09:37 | PM.DS ---
DS: Providers Provider Date of Service: 10/28/22 Date of admission: 10/24/22 23:37 Primary care physician: Jose Miles MD Consults: 10/24/22 23:57 Consult to Gastroenterology Routine Consulting Provider: Ashley Navarrete Reason for consultation: GI bleed 10/25/22 09:31 Consult to Cardiology Routine Consulting Provider: Chris Bustos Reason for consultation: preop eval; elevated cardiac enzymes; needs EGD Has provider been notified: No 10/27/22 11:38 Consult to Infectious Diseases Routine Consulting Provider: Eri Bartlett Reason for consultation: ecoli bacteremia Has provider been notified: No Attending physician on discharge: Yaya Lyn Discharging clinician: Madina Chang DS: Diagnosis Discharge Diagnosis (1) GI bleed: Status: Acute (2) Dementia: Status: Acute (3) Urinary tract infection: Status: Inactive DS: Summary Hospital Course Hospital Course: HP as per admitting provider This is a 72-year-old male with pertinent history of paroxysmal atrial fibrillation not on anticoagulation, BPH, essential hypertension, insomnia, dementia, urinary incontinence who was sent from [facility] for evaluation of dark stools.? Patient is a poor historian and does not know why he is here.? He is only oriented to self.? History obtained from chart review and ER provider.? As per the residential staff, patient was lethargic than usual.? In the emergency department, patient was found to be in a fib with RVR.? Creatinine and troponin found to be elevated.? Unable to obtain review of systems . Sepsis secondary to ecoli bacteremia and UTI. Sepsis resolved, treated with IV fluids. treated with IV ceftriaxone while inpatient. Will complete 10 more days of Ceftin. Acute GI bleed. Treated with IV Protonix. H&H has remained stable. No need for scope at this time. Can follow up outpatient with GI. Paroxysmal atrial fibrillation with rapid ventricular response. Resolved in the ER with IV metoprolol. Continue home dose of metoprolol. Not on anticoagulation appears to be because GI bleeding AMBREEN. Resolved with IV fluids, likely in the setting of UTI bacteremia Elevated troponin. Likely in the setting of type 2 demand ischemia secondary to AMBREEN. Essential hypertension . Continue home medications Mood disorder. Continue home mood stabilizers BPH. continue finasteride and Flomax Dementia, unspecified. Maintain sleep-wake cycle Time Spent with Patient Time attestation: Total time managing care of this patient today ____ minutes. Discharge coordination time: Greater than 30 minutes Quality: Safe Use of Opioids Does Pt have an Active Cancer Diagnosis on the Problem List?: No Quality: Stroke Does the patient have a stroke diagnosis?: No Physical Exam Vital Signs: Vital Signs: Last Vital Signs Temp 97.6 F 10/28/22 07:23 Pulse 54 10/28/22 07:23 Resp 18 10/28/22 07:23 BP 182/85 H 10/28/22 07:23 Pulse Ox 97 10/28/22 07:23 O2 Del Method 10/28/22 07:23 BMI result Body Mass Index 26.5 Appearing in no acute distress head is normocephalic atraumatic eyes pupils are PERRLA sclera is anicteric mouth throat mucous membranes are intact and moist neck is supple no lymphadenopathy, no JVD noted lung sounds are clear to auscultation heart regular rate rhythm, clear S1, S2 positive bowel sounds, abdomen is soft, nontender neuro patient is alert, confused baseline DS: Data Data Completed and Pending Labs on day of discharge: Laboratory Results - last 24 hr 10/28/22 10/28/22 06:28 06:28 WBC 7.7 RBC 3.56 L Hgb 11.2 L Hct 33.4 L MCV 93.8 MCH 31.5 MCHC 33.5 RDW 14.4 Plt Count 153 L MPV 9.5 Absolute Nucleated RBC 0.000 Nucleated RBC % (auto) 0.0 Sodium 139 Potassium 3.1 L Chloride 111 H Carbon Dioxide 21 L Anion Gap 10 L BUN 12 Creatinine 0.63 Estim Creat Clear Calc 106.2 Estimated GFR > 60 Random Glucose 92 Calcium 7.7 L Discharge Plan Discharge Anticipated Discharge Date/Time: 10/28/22 09:32 Patient Disposition: Xfer LTC Discharge Diagnosis: Sepsis Ecoli bacteremia GI bleed PAF AMBREEN Referrals: [facility] [Other] - 1 Week Jose Miles MD [Primary Care Provider] - 1 Week Discharge Medications: New Prilosec 10 mg susp,delayed release for recon 20 mg PO BID Qty: 60 0RF cefuroxime axetil 500 mg tablet 500 mg PO BID Qty: 20 0RF Continued buspirone 5 mg tablet 1 tab PO DAILY atorvastatin 20 mg tablet 1 tab PO DAILY tamsulosin 0.4 mg capsule 1 cap PO DAILY amlodipine 10 mg tablet 1 tab PO DAILY erythromycin ethylsuccinate 200 mg/5 mL suspension for reconstitution 200 mg PO DAILY lisinopril 5 mg tablet 1 tab PO DAILY finasteride 5 mg tablet 1 tab PO DAILY metoprolol tartrate 25 mg tablet 1 tab PO DAILY cefuroxime axetil 500 mg tablet 500 mg PO Q12H Qty: 20 0RF Diet: Advance to usual diet Activity on Discharge: As tolerated Stand Alone Forms: Patient Portal Discharge page Care Plan Goals: Complete resolution of symptoms Health Concerns: Sepsis Ecoli bacteremia GI bleed PAF AMBREEN Plan of Treatment: Follow up with primary care provider as needed Take all medications as prescribed Assessment: See discharge summary
[2022-10-28 10:18] LABS: COVID-19 Test Negative (Negative); IDNOW Serial# 9DB6401D
--- NOTE | 2022-10-28 10:51 | P.PNGI_ITS ---
Subjective Subjective Date of Service: 10/28/22 Critical Care Time (minutes): 0 Comment: Patient seen and evaluated at bedside. Had just had a bowel movement that was formed and brown. Does not report any abdominal pain, nausea, vomiting. Has been tolerating his diet okay. Physical Exam Vital Signs: Vital Signs: Last Vital Signs Temp 97.6 F 10/28/22 07:23 Pulse 54 10/28/22 07:23 Resp 18 10/28/22 07:23 BP 182/85 H 10/28/22 07:23 Pulse Ox 97 10/28/22 07:23 O2 Del Method 10/28/22 07:23 BMI result Body Mass Index 26.5 Gen appear: frail appearing Abd: soft, nontender, nondistended Rectal: deferred as above Neuro: uses a walker to ambulate Objective Data Labs 10/28/22 06:28 10/28/22 06:28 Labs: Laboratory Results - last 24 hr 10/28/22 10/28/22 10/28/22 06:28 06:28 09:55 WBC 7.7 RBC 3.56 L Hgb 11.2 L Hct 33.4 L MCV 93.8 MCH 31.5 MCHC 33.5 RDW 14.4 Plt Count 153 L MPV 9.5 Absolute Nucleated RBC 0.000 Nucleated RBC % (auto) 0.0 Sodium 139 Potassium 3.1 L Chloride 111 H Carbon Dioxide 21 L Anion Gap 10 L BUN 12 Creatinine 0.63 Estim Creat Clear Calc 106.2 Estimated GFR > 60 Random Glucose 92 Calcium 7.7 L COVID-19 ([place]) Negative COVID-19 Clin Com See Note Microbiology Microbiology Results: Microbiology 10/25/22 05:33 Blood - Venous Blood Culture - Final Escherichia coli 10/25/22 05:33 Blood - Venous Blood Culture - Final Escherichia coli 10/25/22 00:00 Urine Catheterized - Ontiveros Catheter Urine Culture - Final Escherichia coli Procedures Date of Service Date of Service: 10/28/22 Progress Note: A&P Assessment and plan (1) GI bleed: Status: Acute (2) Acute renal failure: Status: Acute (3) Dementia: Status: Acute (4) Paroxysmal atrial fibrillation: Status: Acute (5) Bacteremia: Status: Acute Plan 72 ym with history of paroxysmal atrial fibrillation not on anticoagulation, BPH, essential hypertension, insomnia, dementia, urinary incontinence who was sent from his LTAC for AMS and dark stools found to have sepsis secondary to E coli pyelonephritis and bacteremia. Mentation appears to be improved from before although still has some baseline c onfusion likely due to underlying dementia. No evidence of overt GI bleeding. H/H stable after volume resuscitation. Endoscopy not indicated at this time. Can switch PPI therapy to PO. Advance diet. Time Spent With Patient Time: Total time managing care of this patient today ____ minutes. Quality Stroke Does the patient have a stroke diagnosis?: No VTE Prior VTE?: No VTE Risk Level:: Medical - moderate - high VTE Device Contraindication: N/A - Device Ordered VTE Drug Contraindication: Treatment Not Indicated
== END 2022-10-28 12:32 | DRG 872 ==
LOC: HO.ED 23:39 → HO.EDOVER 23:51 → HO.IMC 10-25 15:21
PROVIDERS: Physician Assistant Medical; Admitting Provider Student in an Organized Health Care Education/Training Program; Emergency Provider Emergency Medicine; PCP Family Medicine; Visit Provider Nurse Practitioner Acute Care
DX: A41.51 Sepsis due to Escherichia coli [E. coli] (principal); I24.8 Other forms of acute ischemic heart disease; N13.6 Pyonephrosis; N17.9 Acute kidney failure, unspecified; K92.2 Gastrointestinal hemorrhage, unspecified; I48.0 Paroxysmal atrial fibrillation; N40.1 Benign prostatic hyperplasia with lower urinary tract symptoms; N39.498 Other specified urinary incontinence; I10 Essential (primary) hypertension; F39 Unspecified mood [affective] disorder; F03.90 Unspecified dementia, unspecified severity, without behavioral disturbance, psychotic disturbance, mood disturbance, and anxiety; Z20.822 Contact with and (suspected) exposure to COVID-19; Z79.899 Other long term (current) drug therapy
CPT/HCPCS: 36415; 74176; 80048; 80053; 81001; 83605; 84484; 85007; 85025; 85027; 87040; 87077; 87086; 87088; 87186; 87205; 87635; 93005; 99285; C1758; J0696

== ENCOUNTER → 2022-10-24 23:37 | Outpatient (BNV) | payer MEDICARE, MEDICAID, SELFPAY | PROVIDERS: Admitting Provider Student in an Organized Health Care Education/Training Program; Emergency Provider Emergency Medicine; PCP Family Medicine; Visit Provider Internal Medicine | DX: K92.2 Gastrointestinal hemorrhage, unspecified (principal); R77.8 Other specified abnormalities of plasma proteins; I48.91 Unspecified atrial fibrillation | CPT/HCPCS: 99232; 99499 ==

== ENCOUNTER 2022-12-08 09:34 | Emergency (ER) | payer MEDICARE, MEDICAID, SELFPAY ==
--- NOTE | 2022-12-08 09:39 | ED.GENADULT ---
HPI - General Adult General Chief complaint: Urogenital-Male Stated complaint: From SNF, poss urinary obstruction per EMS Time Seen by Provider: 12/08/22 09:37 Source: patient and EMS Mode of arrival: EMS Limitations: altered mental status History of Present Illness HPI narrative: 72 yo male coming from [facility] with past medical history of afib not on AC therapy, BPH, HTN, insomnia, dementia who presents from SNF with concern for inability to void. Per report from EMS patient had a villa catheter which was not draining and so it was removed by nursing staff sometime this morning. Patient has been unable to void post removal. Patient is at baseline per SNF staff Related Data Home Medications Medication Instructions Recorded Confirmed amlodipine 10 mg tablet 1 tab PO DAILY 10/25/22 10/25/22 atorvastatin 20 mg tablet 1 tab PO DAILY 10/25/22 10/25/22 buspirone 5 mg tablet 1 tab PO DAILY 10/25/22 10/25/22 erythromycin ethylsuccinate 200 200 mg PO DAILY 10/25/22 10/25/22 mg/5 mL oral powder for suspension finasteride 5 mg tablet 1 tab PO DAILY 10/25/22 10/25/22 lisinopril 5 mg tablet 1 tab PO DAILY 10/25/22 10/25/22 metoprolol tartrate 25 mg tablet 1 tab PO DAILY 10/25/22 10/25/22 tamsulosin 0.4 mg capsule 1 cap PO DAILY 10/25/22 10/25/22 Previous Rx's Medication Instructions Recorded cefuroxime axetil 500 mg tablet 500 mg PO Q12H #20 tabs 08/20/22 cefuroxime axetil 500 mg tablet 500 mg PO BID #20 tabs 10/28/22 omeprazole magnesium 10 mg oral 20 mg PO BID #60 ea 10/28/22 suspension,delayed release (Prilosec) cefuroxime axetil 250 mg tablet 250 mg PO BID #14 tabs 12/08/22 Allergies Allergy/AdvReac Type Severity Reaction Status Date / Time cats Allergy Unknown Unknown Uncoded 08/20/22 16:10 Review of Systems Review of Systems: Yes all other systems are reviewed and are negative Constitutional: Constitutional: Reports no additional constitutional complaints, Denies body ache(s), Denies chills, Denies fever(s), Denies headache(s) and Denies weakness Eyes: Eyes: Reports no additional eye complaints and Denies change in vision ENT: Reports system reviewed and no additional complaints, except as documented, Denies dizziness, Denies headache(s), Denies nasal congestion, Denies nasal discharge and Denies neck pain Cardiovascular: Cardiovascular: Reports no additional cardiovascular complaints, Denies chest pain, Denies leg edema and Denies dyspnea Respiratory: Respiratory: Reports no additional respiratory complaints, Denies cough and Denies dyspnea Gastrointestinal: Gastrointestinal: Reports no additional gastrointestinal complaints, Denies abdominal pain, Denies diarrhea, Denies nausea and Denies vomiting Genitourinary: Genitourinary: Reports difficulty urinating and Denies urinary incontinence Musculoskeletal: Musculoskeletal: Reports no additional musculoskeletal complaints, Denies back pain, Denies arthralgias, Denies joint swelling, Denies neck pain, Denies numbness and Denies tingling Integumentary/Breasts: Skin/Breast: Reports system reviewed and no additional complaints, except as docu and Denies rash Neurologic: Reports system reviewed and no additional complaints, except as documented, Denies dizziness, Denies headache(s), Denies numbness, Denies tingling and Denies weakness PMFSH Past Medical History Attestation statement: The following information was validated with the patient. Source: old records reviewed and nursing notes reviewed Medical History Atrial fibrillation, rapid Bacteremia BPH (benign prostatic hyperplasia) Dementia Essential hypertension Insomnia Paroxysmal atrial fibrillation Urinary incontinence Social History Social History Household Members: Other Housing: Skilled Nursing Unable to assess alcohol history related to: Unknown Alcohol intake: never Patient Tobacco Use Status: Tobacco use Unknown Smoked in Last 30 Days: No Use of substances other than those prescribed or required for medical reasons: No Advance Directives: Yes Advance Directives on File: Yes Advance Directives Date on File: 08/21/22 service: No Current occupational status: retired Physical Exam ED Vital Signs: Vital Signs - 24 hr 12/08/22 09:49 12/08/22 11:29 Temperature 98.3 F 98.6 F Pulse Rate 103 H 92 Respiratory Rate 17 12 Blood Pressure 190/112 H 135/86 Pulse Oximetry 96 97 Oxygen Delivery Method Room Air Room Air BMI result Body Mass Index 23.0 Const Orientation/consciousness: oriented to person Limitations: altered mental status HENMT Head: Yes normal to inspection Mouth: Normal oral and palatal mucosa present Throat: Yes posterior oropharynx normal Eyes General: appearance normal, both eyes and all related structures Neck Neck: Yes normal visual inspection Chest Chest palpation & inspection: normal inspection of the chest Resp Auscultation: clear to auscultation bilaterally Cardio Other: irregular rate, tachycardia Jugular venous distension: no JVD Rhythm: abnormal rhythm Heart sounds: S2 normal heart sound present GI Inspection: Yes normal to inspection Palpation (GI): Soft to palpation and Tenderness to palpation present (GI) suprapubicly Auscultation: normal bowel sounds Skin General skin exam: no rashes or lesions noted Neuro General: oriented to person and moves all extremities Extrem General: Yes normal to inspection, Yes no pedal edema and Yes no calf tenderness Psych Appearance: grossly normal Course Course Course Narrative: 1015-Bladder scan >1000ml urine. Villa catheter placed by nursing and patient put out over 2500ml Reevaluation(s) Reevaluation #1: 1045 UA is consistent with UTI. Patient with a mild leukocytosis. Normal renal function. At this time infection suspected. blood cultures/lactic acid ordered. Antibiotics ordered. Reevaluation #2: 1200-lactic acid is normal. Renal function is normal. Patient with no fever here. Overall nontoxic appearing patient did receive a dose of ceftriaxone. Patient had blood cultures that were sent. He can go back to his nursing home facility on oral antibiotics and return for any worsening symptoms. Medical Decision Making Medical Decision Making [facility] Narrative: 72 yo male from SNF with inability to void after his villa catheter was removed earlier today as it was not flowing. Will obtain bladder scan, UA, labs. Differential Diagnosis Differential Diagnoses: The differential diagnosis associated with the presentation includes Lab Data 12/08/22 10:20 12/08/22 10:20 Labs: Lab Results 12/08/22 12/08/22 12/08/22 Range/Units 10:08 10:20 10:20 WBC 15.2 H (4.8-10.8) X10*3/uL RBC 4.79 D (4.60-5.80) X10*6/uL Hgb 14.5 D (14.0-18.0) g/dl Hct 43.7 D (42.0-52.0) % MCV 91.2 (80.0-98.0) fL MCH 30.3 (27.0-33.0) pg MCHC 33.2 (31.0-36.0) g/dl RDW 14.1 (11.0-16.0) % Plt Count 216 D (160-400) X10*3/uL MPV 8.6 L (9.4-12.4) fL Immature Gran % (Auto) 0.6 H (0.0-0.4) % Neut % (Auto) 86.8 H (45-73) % Lymph % (Auto) 5.5 L (20-40) % [place] % (Auto) 7.0 (2-11) % Eos % (Auto) 0.0 (0-4) % Baso % (Auto) 0.1 (0-2) % Lymph # (Auto) 0.8 L (1.2-4.9) X10*3/uL [place] # (Auto) 1.1 (0.1-1.2) X10*3/uL Eos # (Auto) 0.0 (0.0-0.4) X10*3/uL Baso # (Auto) 0.0 (0.0-0.2) X10*3/uL Abs Immat Gran (auto) 0.09 H (0.00-0.03) X10*3/uL Absolute Neuts (auto) 13.2 H (2.0-8.3) x10*3/uL Absolute Nucleated RBC 0.000 (0.0-0.012) X10*3/uL Nucleated RBC % (auto) 0.0 (0.0-0.2) /100WBC Sodium 138 (135-145) mmol/L Potassium 3.4 (3.3-5.1) mmol/L Chloride 107 (96-108) mmol/L Carbon Dioxide 18 L (22-29) mmol/L Anion Gap 16 (12-20) BUN 28 H (9-16) mg/dL Creatinine 0.77 (0.5-1.4) mg/dL Estim Creat Clear Calc 89.0 Estimated GFR > 60 Random Glucose 161 H (60-115) mg/dL Lactic Acid (0.5-2.0) mmol/L Calcium 9.1 D (8.4-10.2) mg/dL Total Bilirubin 1.0 (0.0-1.0) mg/dL Direct Bilirubin 0.3 (0.0-0.5) mg/dL AST 27 (5-37) U/L ALT 31 (0-40) U/L Alkaline Phosphatase 75 (39-117) U/L Total Protein 6.4 L (6.5-8.0) g/dL Albumin 4.1 (3.5-5.0) g/dL Urine Color Yellow Urine Appearance Cloudy Urine pH 6.5 (5.0-9.0) Ur Specific [place] 1.015 (1.005-1.025) Urine Protein 30 (1+) H (Neg-Trace) mg/dL Urine Glucose (UA) Negative (Negative) mg/dL Urine Ketones Negative (Negative) mg/dL Urine Blood Moderate (2+) H (Negative) Urine Nitrite Negative (Negative) Ur Leukocyte Esterase Moderate (2+) H (Negative) Urine RBC 11-20 H (0-2) /HPF Urine WBC >50 H (0-5) /HPF Ur Squamous Epith Cells 0-2 (0-2) /HPF Urine Bacteria 4+ (None Seen) Hyaline Casts 0-2 (0-2) /LPF 12/08/22 Range/Units 11:26 WBC (4.8-10.8) X10*3/uL RBC (4.60-5.80) X10*6/uL Hgb (14.0-18.0) g/dl Hct (42.0-52.0) % MCV (80.0-98.0) fL MCH (27.0-33.0) pg MCHC (31.0-36.0) g/dl RDW (11.0-16.0) % Plt Count (160-400) X10*3/uL MPV (9.4-12.4) fL Immature Gran % (Auto) (0.0-0.4) % Neut % (Auto) (45-73) % Lymph % (Auto) (20-40) % [place] % (Auto) (2-11) % Eos % (Auto) (0-4) % Baso % (Auto) (0-2) % Lymph # (Auto) (1.2-4.9) X10*3/uL [place] # (Auto) (0.1-1.2) X10*3/uL Eos # (Auto) (0.0-0.4) X10*3/uL Baso # (Auto) (0.0-0.2) X10*3/uL Abs Immat Gran (auto) (0.00-0.03) X10*3/uL Absolute Neuts (auto) (2.0-8.3) x10*3/uL Absolute Nucleated RBC (0.0-0.012) X10*3/uL Nucleated RBC % (auto) (0.0-0.2) /100WBC Sodium (135-145) mmol/L Potassium (3.3-5.1) mmol/L Chloride (96-108) mmol/L Carbon Dioxide (22-29) mmol/L Anion Gap (12-20) BUN (9-16) mg/dL Creatinine (0.5-1.4) mg/dL Estim Creat Clear Calc Estimated GFR Random Glucose (60-115) mg/dL Lactic Acid 2.0 (0.5-2.0) mmol/L Calcium (8.4-10.2) mg/dL Total Bilirubin (0.0-1.0) mg/dL Direct Bilirubin (0.0-0.5) mg/dL AST (5-37) U/L ALT (0-40) U/L Alkaline Phosphatase (39-117) U/L Total Protein (6.5-8.0) g/dL Albumin (3.5-5.0) g/dL Urine Color Urine Appearance Urine pH (5.0-9.0) Ur Specific [place] (1.005-1.025) Urine Protein (Neg-Trace) mg/dL Urine Glucose (UA) (Negative) mg/dL Urine Ketones (Negative) mg/dL Urine Blood (Negative) Urine Nitrite (Negative) Ur Leukocyte Esterase (Negative) Urine RBC (0-2) /HPF Urine WBC (0-5) /HPF Ur Squamous Epith Cells (0-2) /HPF Urine Bacteria (None Seen) Hyaline Casts (0-2) /LPF Discharge Plan Discharge Clinical Impression: Urinary tract infection, Acute retention of urine Patient Disposition: Xfer SNF Transfer Details: [facility] Prescriptions: New cefuroxime axetil 250 mg tablet 250 mg PO BID Qty: 14 0RF No Action buspirone 5 mg tablet 1 tab PO DAILY atorvastatin 20 mg tablet 1 tab PO DAILY tamsulosin 0.4 mg capsule 1 cap PO DAILY amlodipine 10 mg tablet 1 tab PO DAILY erythromycin ethylsuccinate 200 mg/5 mL suspension for reconstitution 200 mg PO DAILY lisinopril 5 mg tablet 1 tab PO DAILY finasteride 5 mg tablet 1 tab PO DAILY metoprolol tartrate 25 mg tablet 1 tab PO DAILY Prilosec 10 mg susp,delayed release for recon 20 mg PO BID Qty: 60 0RF cefuroxime axetil 500 mg tablet 500 mg PO BID Qty: 20 0RF cefuroxime axetil 500 mg tablet 500 mg PO Q12H Qty: 20 0RF
[2022-12-08 09:49] VITALS: BP 184/100; BP 190/112; PULSE 103; PULSE 104; RESP 17; TEMP 36.8; O2SAT 96; BMI 23.0
[2022-12-08 10:19] LABS: Appearance Urine Cloudy; Color Urine Yellow; Glucose Urine UA Negative (Negative); Leukocyte Esterase Urine Moderate (2+) (Negative); Nitrite Urine Negative (Negative); PH 6.5 (5.0-9.0); Specific Gravity - Urine 1.015 (1.005-1.025); UMIC TRIGGER UACC YES; Urine Blood Moderate (2+) (Negative); Urine Ketones Negative (Negative); Urine Protein 30 (1+) mg/dL (Neg-Trace)
[2022-12-08 10:24] LABS: MANUAL DIFF FLAG NO
[2022-12-08 10:25] LABS: Basophils Percent Auto 0.1 % (0-2); Hematocrit 43.7 % (42.0-52.0); Hemoglobin 14.5 g/dl (14.0-18.0); Imm Gran Abs Auto 0.09 X10*3/uL (0.00-0.03); Imm Gran Pct Auto 0.6 % (0.0-0.4); Lymphocytes Absolute Auto 0.8 X10*3/uL (1.2-4.9); Lymphocytes Percent Auto 5.5 % (20-40); Mean Corpuscular HGB Conc 33.2 g/dl (31.0-36.0); Mean Corpuscular Hemoglobin 30.3 pg (27.0-33.0); Mean Corpuscular Volume 91.2 fL (80.0-98.0); Mean Platelet Volume 8.6 fL (9.4-12.4); Monocytes Absolute Auto 1.1 X10*3/uL (0.1-1.2); Neutrophils Absolute Auto 13.2 x10*3/uL (2.0-8.3); Neutrophils Percent Auto 86.8 % (45-73); Platelet Count 216 X10*3/uL (160-400); Red Blood Count 4.79 X10*6/uL (4.60-5.80); Red Cell Distribution Width 14.1 % (11.0-16.0); White Blood Count 15.2 X10*3/uL (4.8-10.8)
[2022-12-08 10:32] LABS: Bacteria Urine 4+ (None Seen); Hyaline Casts Urine 0-2 /LPF (0-2); Squamous Epithelial Cell Urine 0-2 /HPF (0-2); UACC Culture Trigger YES; WBC Urine >50 /HPF (0-5)
[2022-12-08 10:43] LABS: Alanine Aminotransferase 31 U/L (0-40); Albumin Level 4.1 g/dL (3.5-5.0); Alkaline Phosphatase 75 U/L (39-117); Anion Gap 16 (12-20); Aspartate Amino Transferase 27 U/L (5-37); Bilirubin Direct 0.3 mg/dL (0.0-0.5); Blood Urea Nitrogen 28 mg/dL (9-16); Calcium 9.1 mg/dL (8.4-10.2); Carbon Dioxide 18 mmol/L (22-29); Chloride 107 mmol/L (96-108); Estimated Glomerular Filt Rate > 60; Glucose Random 161 mg/dL (60-115); Potassium 3.4 mmol/L (3.3-5.1); Sodium 138 mmol/L (135-145); Total Protein 6.4 g/dL (6.5-8.0)
[2022-12-08 11:29] VITALS: BP 135/86; PULSE 92; RESP 12; TEMP 37; O2SAT 97
[2022-12-08] MEDS: cefTRIAXone sodium 1 GM in 0.9 % Sodium Chloride 50 ML IV (12:05)
--- NOTE | 2022-12-08 12:56 | PC.NURSE ---
rn to rn report given to adrianna ([phone], [facility]). pt aware of plan of care for transfer to facility.
[2022-12-08 14:09] VITALS: BP 135/86; PULSE 97; RESP 14; TEMP 36.6; O2SAT 98
== END 2022-12-08 15:02 | disposition skilled nursing facility (03) ==
PROVIDERS: Nurse Practitioner Family; Emergency Provider Emergency Medicine; PCP Family Medicine
DX: T83.098A Other mechanical complication of other urinary catheter, initial encounter (principal); R33.9 Retention of urine, unspecified; N39.0 Urinary tract infection, site not specified; F03.90 Unspecified dementia, unspecified severity, without behavioral disturbance, psychotic disturbance, mood disturbance, and anxiety; I10 Essential (primary) hypertension; Y73.8 Miscellaneous gastroenterology and urology devices associated with adverse incidents, not elsewhere classified; Y92.9 Unspecified place or not applicable; Z79.899 Other long term (current) drug therapy
CPT/HCPCS: 36415; 51702; 51798; 80048; 80076; 81001; 83605; 85025; 87040; 87086; 87088; 87186; 96365; 99285; J0696

== ENCOUNTER 2023-02-17 08:32 | Emergency (ER) | payer OTHER, MEDICAID, SELFPAY ==
[2023-02-17 08:47] VITALS: BP 176/108; BP 178/110; PULSE 10; PULSE 110; RESP 18; TEMP 37.1; O2SAT 100; O2SAT 97; BMI 24.9
--- NOTE | 2023-02-17 09:09 | PC.NURSE ---
patient a&o to baseline, pt c/o inability to urinate, denies pain-states he just has some pressure, bladder scan performed and noted to greater than 2,000. This nurse attempted to place villa cath was unable to do so due to pt BPH- provider notified- additional supplies for provider at bedside. Pt noted to be hypertensive, call brown within reach, will continue to monitor
[2023-02-17 09:43] LABS: Appearance Urine Turbid; Color Urine Yellow; Glucose Urine UA Negative (Negative); Leukocyte Esterase Urine Large (3+) (Negative); Nitrite Urine Negative (Negative); PH 6.5 (5.0-9.0); Specific Gravity - Urine 1.015 (1.005-1.025); UMIC TRIGGER UACC YES; Urine Blood Large (3+) (Negative); Urine Ketones Negative (Negative); Urine Protein 30 (1+) mg/dL (Neg-Trace)
[2023-02-17 09:47] LABS: Bacteria Urine 4+ (None Seen); Hyaline Casts Urine 0-2 /LPF (0-2); RBC Urine >20 /HPF (0-2); Squamous Epithelial Cell Urine 0-2 /HPF (0-2); UACC Culture Trigger YES; WBC Urine >50 /HPF (0-5)
--- NOTE | 2023-02-17 09:54 | PC.NURSE ---
provider was able to place a 20 coude cath in the patient, cath draining yellow urine at this time.
[2023-02-17 10:00] VITALS: BP 133/86; PULSE 104; RESP 18; TEMP 36.9; O2SAT 98
[2023-02-17] MEDS: cephALEXin 500 MG CAPSULE PO (10:15)
--- NOTE | 2023-02-17 10:16 | ED_ITS ---
HPI - Male Genitourinary General Chief complaint: Urogenital-Male Stated complaint: F/C FELL OUT LAST NOC/UNABLE TO REPLACE @SNF Time Seen by Provider: 02/17/23 08:36 Source: patient and EMS Mode of arrival: EMS History of Present Illness HPI Narrative: 72-year-old male presents with Ontiveros catheter dislodgement. Symptoms occurred last night. Denies any pain, fevers, chills, nausea vomiting. Symptoms are moderate in nature. He has a chronic indwelling Ontiveros catheter. There is no clear relieving or exacerbating features. Patient denies any additional pain complaints. Related Data Home Medications Medication Instructions Recorded Confirmed amlodipine 10 mg tablet 1 tab PO DAILY 10/25/22 10/25/22 atorvastatin 20 mg tablet 1 tab PO DAILY 10/25/22 10/25/22 buspirone 5 mg tablet 1 tab PO DAILY 10/25/22 10/25/22 erythromycin ethylsuccinate 200 200 mg PO DAILY 10/25/22 10/25/22 mg/5 mL oral powder for suspension finasteride 5 mg tablet 1 tab PO DAILY 10/25/22 10/25/22 lisinopril 5 mg tablet 1 tab PO DAILY 10/25/22 10/25/22 metoprolol tartrate 25 mg tablet 1 tab PO DAILY 10/25/22 10/25/22 tamsulosin 0.4 mg capsule 1 cap PO DAILY 10/25/22 10/25/22 Previous Rx's Medication Instructions Recorded cefuroxime axetil 500 mg tablet 500 mg PO Q12H #20 tabs 08/20/22 cefuroxime axetil 500 mg tablet 500 mg PO BID #20 tabs 10/28/22 omeprazole magnesium 10 mg oral 20 mg PO BID #60 ea 10/28/22 suspension,delayed release (Prilosec) cefuroxime axetil 250 mg tablet 250 mg PO BID #14 tabs 12/08/22 cephalexin 500 mg capsule 500 mg PO Q12H #20 caps 02/17/23 Allergies Allergy/AdvReac Type Severity Reaction Status Date / Time cats Allergy Unknown Unknown Uncoded 08/20/22 16:10 Review of Systems Review of Systems: CONSTITUTIONAL: Denies weight loss, fever and chills. HEENT: Denies changes in vision and hearing. RESPIRATORY: Denies SOB and cough. CV: Denies palpitations no CP. GI: Denies abdominal pain, nausea, vomiting and diarrhea. : Denies dysuria and urinary frequency. MSK: Denies myalgia and joint pain. SKIN: Denies rash and pruritus. NEUROLOGICAL: Denies headache and syncope. PSYCHIATRIC: Denies recent changes in mood. Denies anxiety and depression. All other ROS are negative unless in HPI PMFSH Past Medical History Medical History Adult failure to thrive Atrial fibrillation, rapid Bacteremia BPH (benign prostatic hyperplasia) Dementia Essential hypertension Gastrointestinal hemorrhage, unspecified History of falling Insomnia Paroxysmal atrial fibrillation Unspecified hydronephrosis Urinary incontinence Social History Social History Household Members: Other Housing: Skilled Nursing Unable to assess alcohol history related to: Unknown Alcohol intake: never Patient Tobacco Use Status: Tobacco use Unknown Smoked in Last 30 Days: No Use of substances other than those prescribed or required for medical reasons: No Advance Directives: Yes Advance Directives on File: Yes Advance Directives Date on File: 08/21/22 service: No Current occupational status: retired Physical Exam Vital Signs: Vital Signs: Last Vital Signs Temp 98.4 F 02/17/23 10:00 Pulse 104 H 02/17/23 10:00 Resp 18 02/17/23 10:00 BP 133/86 02/17/23 10:00 Pulse Ox 98 02/17/23 10:00 O2 Del Method Room Air 02/17/23 10:00 BMI result Body Mass Index 24.9 GEN: Well developed, no acute distress, alert, HEENT: Normocephalic, atraumatic, normal external ears, nose appears normal, no oropharyngeal edema or exudates Eyes: Normal to appearance Neck: Supple, no lymphadenopathy Respiratory: Talks in complete sentences, no respiratory distress, clear to auscultation bilaterally Cardiovascular: Regular rate and rhythm, no murmurs rubs or gallops Abdomen: Soft, nontender, nondistended, no guarding, no rebound Back: No CVA tenderness Extremities: No clubbing cyanosis or edema Neurologic: No focal neurologic deficits, cranial nerves 2-12 intact, strength is 5/5 bilaterally Skin: No rash Course Course Course Narrative: 72-year-old male presents with acute urinary retention secondary to Ontiveros catheter dislodgement. A coude catheter was placed successfully. Urinary tract infection. Patient will be started 9 antibiotics. Follow up as needed. Medications Administered Discontinued Medications Generic Name Dose Route Start Last Admin Trade Name Lawrence PRN Reason Stop Dose Admin Cephalexin HCl 500 mg 02/17/23 09:54 02/17/23 10:15 Cephalexin 500 Mg Capsule PO 02/17/23 09:55 500 mg ONCE ONE Administration Medical Decision Making Medical Decision Making [facility] Narrative: 72-year-old male with chronic Ontiveros catheterization presents with dislodgement of Ontiveros catheter. Patient had a bladder scan showing 2000 mL of urinary retention. Good a catheter was placed. Tolerated the procedure well. Will check urinalysis to make sure there is no acute urinary tract infection Differential Diagnosis Differential Diagnoses: The differential diagnosis associated with the presentation includes (Outlet obstruction, BPH, UTI) Lab Data [facility] Lab Attestation statement: I reviewed the patient's lab results. Labs: Lab Results 02/17/23 Range/Units 09:32 Urine Color Yellow Urine Appearance Turbid Urine pH 6.5 (5.0-9.0) Ur Specific [place] 1.015 (1.005-1.025) Urine Protein 30 (1+) H (Neg-Trace) mg/dL Urine Glucose (UA) Negative (Negative) mg/dL Urine Ketones Negative (Negative) mg/dL Urine Blood Large (3+) H (Negative) Urine Nitrite Negative (Negative) Ur Leukocyte Esterase Large (3+) H (Negative) Urine RBC >20 H (0-2) /HPF Urine WBC >50 H (0-5) /HPF Ur Squamous Epith Cells 0-2 (0-2) /HPF Urine Bacteria 4+ (None Seen) Hyaline Casts 0-2 (0-2) /LPF Tests considered The following testing was considered but not selected: Ultrasound Procedures Catheter Insertion (Urinary) Date of insertion: 02/17/23 Time of insertion: 10:18 Reason for placing: Yes Reason for placing indwelling catheter: Acute urinary retention Bladder scan/ultrasound used before catheterization: Yes Estimated amount of urine (mLs): 2,000 Antiseptic solution prep: Povidone-Iodine Topical anesthesia used: Yes Catheter type/location: Coude Size (Croatian): 20 Catheter balloon size (mL): 10 Catheter balloon amount: 8 Results: successfully catheterized-immediate flow Procedure performed: without complications Discharge Plan Discharge Clinical Impression: Acute on chronic retention of urine, Chronic indwelling Ontiveros catheter, Acute UTI Patient Disposition: Home, Self-Care Instructions: Urinary Retention in Men (ED) Prescriptions: New cephalexin 500 mg capsule 500 mg PO Q12H Qty: 20 0RF No Action buspirone 5 mg tablet 1 tab PO DAILY atorvastatin 20 mg tablet 1 tab PO DAILY tamsulosin 0.4 mg capsule 1 cap PO DAILY amlodipine 10 mg tablet 1 tab PO DAILY erythromycin ethylsuccinate 200 mg/5 mL suspension for reconstitution 200 mg PO DAILY lisinopril 5 mg tablet 1 tab PO DAILY finasteride 5 mg tablet 1 tab PO DAILY metoprolol tartrate 25 mg tablet 1 tab PO DAILY Prilosec 10 mg susp,delayed release for recon 20 mg PO BID Qty: 60 0RF cefuroxime axetil 500 mg tablet 500 mg PO BID Qty: 20 0RF cefuroxime axetil 500 mg tablet 500 mg PO Q12H Qty: 20 0RF cefuroxime axetil 250 mg tablet 250 mg PO BID Qty: 14 0RF Referrals: Physician,Unknown J [Primary Care Provider] -
--- NOTE | 2023-02-17 10:28 | PC.NURSE ---
this nurse attempted to call report to [facility] [phone]- answering machine picked up, attempted to connect to a floor- no answer. will attempt to call report again.
== END 2023-02-17 12:20 | disposition home or self-care (01) ==
PROVIDERS: Emergency Provider Emergency Medicine
DX: R33.9 Retention of urine, unspecified (principal); N39.0 Urinary tract infection, site not specified; Z46.6 Encounter for fitting and adjustment of urinary device
CPT/HCPCS: 51798; 81001; 87086; 87088; 87186; 99283; 99284

== ENCOUNTER 2023-02-21 10:03 | Emergency (ER) | payer OTHER, MEDICAID, SELFPAY ==
[2023-02-21 10:09] VITALS: BP 124/82; BP 146/91; PULSE 48; PULSE 58; RESP 16; TEMP 36.4; O2SAT 100; O2SAT 98; BMI 23.4
[2023-02-21 10:15] VITALS: BP 146/91; PULSE 48; RESP 16; O2SAT 100
[2023-02-21 10:20] VITALS: PULSE 56
--- NOTE | 2023-02-21 10:41 | ED_ITS ---
HPI - General Adult General Chief complaint: Recheck/Abnormal Lab/Rx Stated complaint: ABNORMAL LABS Time Seen by Provider: 02/21/23 10:34 Source: EMS Mode of arrival: EMS History of Present Illness HPI narrative: This is a 72 years old male sent by the shelter because positive UTI. The patient has a chronic indwelling catheter, there is no fever, no vomiting, no clinical signs of infection. The urine showed 100,000 E coli multi resistant, he was sent here for possible IV antibiotic (equalize is only sensitive ertapenem and gentamici Onset (ago): day(s) (2) Radiation: non-radiation Severity: mild Pain Consistency: constant Relieving factors: none Related Data Home Medications Medication Instructions Recorded Confirmed amlodipine 10 mg tablet 1 tab PO DAILY 10/25/22 10/25/22 atorvastatin 20 mg tablet 1 tab PO DAILY 10/25/22 10/25/22 buspirone 5 mg tablet 1 tab PO DAILY 10/25/22 10/25/22 erythromycin ethylsuccinate 200 200 mg PO DAILY 10/25/22 10/25/22 mg/5 mL oral powder for suspension finasteride 5 mg tablet 1 tab PO DAILY 10/25/22 10/25/22 lisinopril 5 mg tablet 1 tab PO DAILY 10/25/22 10/25/22 metoprolol tartrate 25 mg tablet 1 tab PO DAILY 10/25/22 10/25/22 tamsulosin 0.4 mg capsule 1 cap PO DAILY 10/25/22 10/25/22 Previous Rx's Medication Instructions Recorded cefuroxime axetil 500 mg tablet 500 mg PO Q12H #20 tabs 08/20/22 cefuroxime axetil 500 mg tablet 500 mg PO BID #20 tabs 10/28/22 omeprazole magnesium 10 mg oral 20 mg PO BID #60 ea 10/28/22 suspension,delayed release (Prilosec) cefuroxime axetil 250 mg tablet 250 mg PO BID #14 tabs 12/08/22 cephalexin 500 mg capsule 500 mg PO Q12H #20 caps 02/17/23 Allergies Allergy/AdvReac Type Severity Reaction Status Date / Time cats Allergy Unknown Unknown Uncoded 08/20/22 16:10 Review of Systems Eyes: Eyes: Reports no additional eye complaints ENT: Reports system reviewed and no additional complaints, except as documented Cardiovascular: Cardiovascular: Reports no additional cardiovascular complaints Respiratory: Respiratory: Reports no additional respiratory complaints Neurologic: Reports system reviewed and no additional complaints, except as documented [facility] Past Medical History Medical History Adult failure to thrive Atrial fibrillation, rapid Bacteremia BPH (benign prostatic hyperplasia) Dementia Essential hypertension Gastrointestinal hemorrhage, unspecified History of falling Insomnia Paroxysmal atrial fibrillation Unspecified hydronephrosis Urinary incontinence Social History Social History Household Members: Other Housing: [facility] Unable to assess alcohol history related to: Unknown Alcohol intake: never Patient Tobacco Use Status: Tobacco use Unknown Smoked in Last 30 Days: No Use of substances other than those prescribed or required for medical reasons: No Advance Directives: Yes Advance Directives on File: Yes Advance Directives Date on File: 08/21/22 service: No Current occupational status: retired Physical Exam ED Vital Signs: Vital Signs - 24 hr 02/21/23 10:09 02/21/23 10:15 02/21/23 10:20 Temperature 97.6 F Pulse Rate 48 L 48 L 56 Respiratory Rate 16 16 Blood Pressure 146/91 H 146/91 H Pulse Oximetry 100 100 Oxygen Delivery Method Room Air Room Air 02/21/23 10:44 02/21/23 12:36 Temperature 99.2 F Pulse Rate 55 Respiratory Rate 16 Blood Pressure 152/71 H Pulse Oximetry 98 Oxygen Delivery Method Room Air BMI result Body Mass Index 23.4 Const General: cooperative Nutritional Appearance: average body habitus Orientation/consciousness: oriented to person HENFL Head: Yes normal to inspection General nose exam: Normal external nose present Face and sinus: Yes normal facial exam Teeth and gingiva: dentition normal Throat: Yes posterior oropharynx normal Neck Neck: Yes normal visual inspection Carotids: normal carotid upstroke Chest Chest palpation & inspection: normal inspection of the chest Resp Effort & Inspection: normal respiratory effort Auscultation: clear to auscultation bilaterally Percussion: percussion normal Cardio Jugular venous distension: no JVD Rate: regular rate Rhythm: regular rhythm GI Inspection: Yes normal to inspection Palpation (GI): Soft to palpation and not firm Percussion: Yes normal to percussion Skin General skin exam: no rashes or lesions noted Lesions: no lesions Rashes: no rashes Neuro General: oriented to person Extrem General: Yes normal to inspection Right upper extremity: normal to inspection Right lower extremity: normal to inspection Course Reevaluation(s) Reevaluation #1: I DISCUSSED THE CASE WITH INFECTIOUS DISEASE SPECIALIST DR ROBBY JOHNSON NO ANTIBIOTIC INDICATED, LIKELY CONTAMINATION SECONDARY TO INDWELLING CATHETER. AT THIS POINT WILL DISCHARGE THE PATIENT BACK TO THE [facility] HE HAS NO FEVER HIS WHITE COUNT IS NORMAL THIS IS LIKELY CONTAMINATION SECONDARY TO CHRONIC INDWELLING CATHETER Time: 11:47 Medical Decision Making Medical Decision Making [facility] Narrative: Patient was here for possible IV antibiotic for ESBL urinary tract infection, however he has no fever no vomiting, this is probably contamination will check his white count any way but I doubt the patient needs admission for IV antibiotic Differential Diagnosis Differential Diagnoses: The differential diagnosis associated with the presentation includes CONTAMINATED URINE/URINARY TRACT INFECTION/PYELONEPHRITIS Admission/Observation Consideration of admission/observation: Escalation of care including admission/observation considered Consult Healthcare Provider CONSULTED I.D. DR ROBBY ALSTON Lab Data [facility] Lab Attestation statement: I reviewed the patient's lab results. 02/21/23 11:00 02/21/23 11:00 Labs: Lab Results 02/21/23 02/21/23 02/21/23 Range/Units 10:39 11:00 11:00 WBC 6.1 (4.8-10.8) X10*3/uL RBC 4.25 L (4.60-5.80) X10*6/uL Hgb 12.8 L (14.0-18.0) g/dl Hct 38.0 L (42.0-52.0) % MCV 89.4 (80.0-98.0) fL MCH 30.1 (27.0-33.0) pg MCHC 33.7 (31.0-36.0) g/dl RDW 14.2 (11.0-16.0) % Plt Count 187 (160-400) X10*3/uL MPV 8.9 L (9.4-12.4) fL Immature Gran % (Auto) 1.0 H (0.0-0.4) % Neut % (Auto) 62.4 (45-73) % Lymph % (Auto) 21.9 (20-40) % [place] % (Auto) 12.5 H (2-11) % Eos % (Auto) 1.7 (0-4) % Baso % (Auto) 0.5 (0-2) % Lymph # (Auto) 1.3 (1.2-4.9) X10*3/uL [place] # (Auto) 0.8 (0.1-1.2) X10*3/uL Eos # (Auto) 0.1 (0.0-0.4) X10*3/uL Baso # (Auto) 0.0 (0.0-0.2) X10*3/uL Abs Immat Gran (auto) 0.06 H (0.00-0.03) X10*3/uL Absolute Neuts (auto) 3.8 (2.0-8.3) x10*3/uL Absolute Nucleated RBC 0.000 (0.0-0.012) X10*3/uL Nucleated RBC % (auto) 0.0 (0.0-0.2) /100WBC Sodium 139 (135-145) mmol/L Potassium 4.1 D (3.3-5.1) mmol/L Chloride 107 (96-108) mmol/L Carbon Dioxide 23 (22-29) mmol/L Anion Gap 13 (12-20) BUN 17 H (9-16) mg/dL Creatinine 0.77 (0.5-1.4) mg/dL Estim Creat Clear Calc 89.6 Estimated GFR > 60 Random Glucose 96 (60-115) mg/dL Calcium 9.2 (8.4-10.2) mg/dL Total Bilirubin 0.6 (0.0-1.0) mg/dL AST 13 (5-37) U/L ALT 12 (0-40) U/L Alkaline Phosphatase 61 (39-117) U/L Total Protein 6.3 L (6.5-8.0) g/dL Albumin 3.6 (3.5-5.0) g/dL Urine Color Yellow Urine Appearance Clear Urine pH 6.5 (5.0-9.0) Ur Specific [place] 1.010 (1.005-1.025) Urine Protein 30 (1+) H (Neg-Trace) mg/dL Urine Glucose (UA) Negative (Negative) mg/dL Urine Ketones Negative (Negative) mg/dL Urine Blood Moderate (2+) H (Negative) Urine Nitrite Negative (Negative) Ur Leukocyte Esterase Moderate (2+) H (Negative) Urine RBC 6-10 H (0-2) /HPF Urine WBC 21-50 H (0-5) /HPF Ur Squamous Epith Cells 0-2 (0-2) /HPF Urine Bacteria 4+ (None Seen) Hyaline Casts 0-2 (0-2) /LPF External Record Review External record reviewed: Outside ED record [facility] record reviwed Chronic Conditions INDWELLING CATHETER Discharge Plan Discharge Clinical Impression: Contamination of urine culture Patient Disposition: Xfer [facility] Additional Instructions: THE URINE IS LIKELY CONTAMINATED, WE WILL NOT RECOMMEND ANTIBIOTIC UNLESS FEVER, ELEVATED WHITE COUNT, SYSTEMIC SYMPTOMS Prescriptions: No Action buspirone 5 mg tablet 1 tab PO DAILY atorvastatin 20 mg tablet 1 tab PO DAILY tamsulosin 0.4 mg capsule 1 cap PO DAILY amlodipine 10 mg tablet 1 tab PO DAILY erythromycin ethylsuccinate 200 mg/5 mL suspension for reconstitution 200 mg PO DAILY lisinopril 5 mg tablet 1 tab PO DAILY finasteride 5 mg tablet 1 tab PO DAILY metoprolol tartrate 25 mg tablet 1 tab PO DAILY Prilosec 10 mg susp,delayed release for recon 20 mg PO BID Qty: 60 0RF cefuroxime axetil 500 mg tablet 500 mg PO BID Qty: 20 0RF cefuroxime axetil 500 mg tablet 500 mg PO Q12H Qty: 20 0RF cefuroxime axetil 250 mg tablet 250 mg PO BID Qty: 14 0RF cephalexin 500 mg capsule 500 mg PO Q12H Qty: 20 0RF Referrals: Jose Miles MD [Primary Care Provider] - 3 days
[2023-02-21 10:44] VITALS: TEMP 37.3
[2023-02-21 10:50] LABS: Appearance Urine Clear; Color Urine Yellow; Glucose Urine UA Negative (Negative); Leukocyte Esterase Urine Moderate (2+) (Negative); Nitrite Urine Negative (Negative); PH 6.5 (5.0-9.0); UMIC TRIGGER UACC YES; Urine Blood Moderate (2+) (Negative); Urine Ketones Negative (Negative); Urine Protein 30 (1+) mg/dL (Neg-Trace)
[2023-02-21 10:53] LABS: Bacteria Urine 4+ (None Seen); Hyaline Casts Urine 0-2 /LPF (0-2); Squamous Epithelial Cell Urine 0-2 /HPF (0-2); UACC Culture Trigger YES; WBC Urine 21-50 /HPF (0-5)
[2023-02-21 11:05] LABS: MANUAL DIFF FLAG NO
[2023-02-21 11:11] LABS: Basophils Percent Auto 0.5 % (0-2); Eosinophils Absolute Auto 0.1 X10*3/uL (0.0-0.4); Eosinophils Percent Auto 1.7 % (0-4); Hemoglobin 12.8 g/dl (14.0-18.0); Imm Gran Abs Auto 0.06 X10*3/uL (0.00-0.03); Lymphocytes Absolute Auto 1.3 X10*3/uL (1.2-4.9); Lymphocytes Percent Auto 21.9 % (20-40); Mean Corpuscular HGB Conc 33.7 g/dl (31.0-36.0); Mean Corpuscular Hemoglobin 30.1 pg (27.0-33.0); Mean Corpuscular Volume 89.4 fL (80.0-98.0); Mean Platelet Volume 8.9 fL (9.4-12.4); Monocytes Absolute Auto 0.8 X10*3/uL (0.1-1.2); Monocytes Percent Auto 12.5 % (2-11); Neutrophils Absolute Auto 3.8 x10*3/uL (2.0-8.3); Neutrophils Percent Auto 62.4 % (45-73); Platelet Count 187 X10*3/uL (160-400); Red Blood Count 4.25 X10*6/uL (4.60-5.80); Red Cell Distribution Width 14.2 % (11.0-16.0); White Blood Count 6.1 X10*3/uL (4.8-10.8)
--- NOTE | 2023-02-21 11:26 | PC.NURSE ---
pt a&o x2, calm and cooperative. knows he is at the hospital and that the year is 2022 but does not know what month or day it is. pt also initially stated that he has had his catheter placed since 1990 but when asked more it was realized that he's had them in and out since 2020. pt has villa bag with leg securement. iv placed in rac, labs drawn and sent, urine sample obtained. pt changed over to hospital attire, resting on stretcher in no apparent distress. rr even/unlabored. wctm
[2023-02-21 11:28] LABS: Alanine Aminotransferase 12 U/L (0-40); Albumin Level 3.6 g/dL (3.5-5.0); Alkaline Phosphatase 61 U/L (39-117); Anion Gap 13 (12-20); Aspartate Amino Transferase 13 U/L (5-37); Bilirubin Total 0.6 mg/dL (0.0-1.0); Blood Urea Nitrogen 17 mg/dL (9-16); Calcium 9.2 mg/dL (8.4-10.2); Carbon Dioxide 23 mmol/L (22-29); Chloride 107 mmol/L (96-108); Creatinine Clr Calc Pharmacy 89.6; Estimated Glomerular Filt Rate > 60; Glucose Random 96 mg/dL (60-115); Potassium 4.1 mmol/L (3.3-5.1); Sodium 139 mmol/L (135-145); Total Protein 6.3 g/dL (6.5-8.0)
[2023-02-21 12:36] VITALS: BP 152/71; PULSE 55; RESP 16; O2SAT 98
== END 2023-02-21 13:37 | disposition skilled nursing facility (03) ==
PROVIDERS: Emergency Provider Emergency Medicine; PCP Family Medicine
DX: N39.0 Urinary tract infection, site not specified (principal); R79.89 Other specified abnormal findings of blood chemistry; Z79.899 Other long term (current) drug therapy
CPT/HCPCS: 36415; 80053; 81001; 85025; 87086; 87088; 87186; 99283; 99284

== ENCOUNTER 2025-04-20 15:26 | Emergency (ER) | payer OTHER, MEDICAID, SELFPAY ==
[2025-04-20 15:22] VITALS: BP 116/78; PULSE 67; O2SAT 99
[2025-04-20 15:55] VITALS: BP 134/75; PULSE 57; RESP 20; TEMP 36.6; O2SAT 95; BMI 23.0
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
[2025-04-20 18:04] LABS: MANUAL DIFF FLAG NO
[2025-04-20 18:09] LABS: Hematocrit 39.8 % (42.0-52.0); Hemoglobin 13.1 g/dl (14.0-18.0); Imm Gran Abs Auto 0.02 X10*3/uL (0.00-0.03); Imm Gran Pct Auto 0.4 % (0.0-0.4); Lymphocytes Absolute Auto 1.4 X10*3/uL (1.2-4.9); Mean Corpuscular HGB Conc 32.9 g/dl (31.0-36.0); Mean Corpuscular Hemoglobin 31.5 pg (27.0-33.0); Mean Corpuscular Volume 95.7 fL (80.0-98.0); NRBC Abs Auto 0.000 X10*3/uL (0.0-0.012); NRBC Pct Auto 0.0 /100WBC (0.0-0.2); Platelet Count 144 X10*3/uL (160-400); Red Blood Count 4.16 X10*6/uL (4.60-5.80); White Blood Count 5.5 X10*3/uL (4.8-10.8)
[2025-04-20 18:16] LABS: Appearance Urine Clear; Glucose Urine UA Negative (Negative); PH 7.0 (5.0-9.0); Specific Gravity - Urine <= 1.005 (1.005-1.025); UMIC TRIGGER UACC YES
[2025-04-20 18:25] LABS: Cannabinoid Screen Urine Not Detected (Not Detect)
[2025-04-20 18:31] LABS: Alanine Aminotransferase 13 U/L (0-40); Albumin Level 3.9 g/dL (3.5-5.0); Alkaline Phosphatase 58 U/L (39-117); Anion Gap 11 (12-20); Aspartate Amino Transferase 17 U/L (5-37); Blood Urea Nitrogen 20 mg/dL (9-16); Calcium 9.1 mg/dL (8.4-10.2); Carbon Dioxide 26 mmol/L (22-29); Chloride 107 mmol/L (96-108); Creatinine Clr Calc Pharmacy 70.0; Estimated Glomerular Filt Rate > 60; Magnesium 2.2 mg/dL (1.6-2.6); Potassium 4.2 mmol/L (3.3-5.1); Sodium 140 mmol/L (135-145); Total Protein 6.0 g/dL (6.5-8.0)
[2025-04-20 18:43] LABS: Resp Syncy Virus RNA Qual PCR NEGATIVE (Negative); SARS COV2 PCR INHOUSE NEGATIVE (Negative)
[2025-04-20 19:24] VITALS: BP 149/88; PULSE 54; RESP 16; TEMP 36.6; O2SAT 96
--- NOTE | 2025-04-20 19:50 | PC.NURSE ---
this RN resumed care of pt at 1845. pt alert and oriented to self. otherwise disoriented. states he is unaware on the year, that he is at [facility] and that he does not know why he is here. vss and up to date. per previous RN, workup currently unremarkable at this time. pt remains calm/cooperative/in no apparent distress. pending disposition. on RA w/o difficulty. no sob/wob noted. respirations even/unlabored. plan of care ongoing. call brown placed within reach.
--- NOTE | 2025-04-20 21:20 | PC.NURSE ---
Spoke w/ THEO Perez at [facility] at this time. Nursing staff notified/aware that patient has remained calm/cooperative and is medically cleared to be transferred back to facility. ETA for transport unknown at this time. Also attempted to call Card Reader (Isabell) to give status update - no answer. Voicemail left.
[2025-04-20 22:34] VITALS: BP 172/90; PULSE 52; RESP 15; TEMP 36.6; O2SAT 98
--- NOTE | 2025-04-20 22:34 | PC.NURSE ---
report given to BERNARDA Middleton. pt leaving to be transferred back to [facility] at this time.
[2025-04-20 22:35] VITALS: BP 172/90; PULSE 52; RESP 15; TEMP 36.6; O2SAT 98
== END 2025-04-20 22:40 | disposition home or self-care (01) ==
PROVIDERS: Emergency Provider Emergency Medicine Emergency Medical Services; PCP Internal Medicine
DX: R45.6 Violent behavior (principal); F03.911 Unspecified dementia, unspecified severity, with agitation; F05 Delirium due to known physiological condition; Z51.81 Encounter for therapeutic drug level monitoring; Z79.899 Other long term (current) drug therapy; Z03.818 Encounter for observation for suspected exposure to other biological agents ruled out
CPT/HCPCS: 36415; 80053; 80307; 81001; 83735; 84443; 85025; 87637; 99284